=== PATIENT | female | born 1980 | race Caucasian/White ===

== ENCOUNTER 2016-08-18 15:31 | Emergency (ER) | payer OTHER ==
[~2016-08-18] VITALS: Ht 162.6 cm; Wt 66.5 kg
[~2016-08-18 15:31] MED LIST: ACET1TAB40 PO; ASPI81TA3 PO; ATOR40TA68 PO; CEPH-443 PO; CLON1TAB3 PO; FLUC150T17 PO; IBUP-1542 PO; INSU100C SC; LANT3I SC; METO-429 PO; PHEN50TA3 PO; ZOLP10TA5 PO
[2016-08-18 16:06] VITALS: Ht 162.6 cm; Wt 66.5 kg
[2016-08-18 18:06] VITALS: BP 112/55; PULSE 93; RESP 16
[2016-08-18] MEDS ORDERED: IBUP-1542 PO (19:34)
--- NOTE | 2016-08-18 19:39 | ERD ---
ER Documentation Chief Complaint Date/Time DATE: 08/18/16 TIME: 19:38 Chief Complaint ON CYCL;HVY BLDG;DIZZY; CP;ANEMIC;5 PADS 2DAY;PELV PAIN;HX STROKE&AL;D&C'16 HPI Patient is a 28-year-old female with coronary disease, diabetes, hypertension, seizures, and bipolar disorder. She said that she is "feeling anemic". She said that she has had vaginal bleeding as her period started yesterday. She says that she has gone through 6 periods today. She started with cramping last night. She called her primary doctor today but there was no appointment available. Upon review of old medical records the patient has multiple visits to the ER. Review of the emergency department information exchange shows ER visits to 3 different emergency departments. ROS All systems reviewed and are negative except as per history of present illness. Medications Home Meds Active Scripts Ibuprofen* (Motrin*) 600 Mg Tab, 600 MG PO Q6H Y for PAIN AND OR ELEVATED TEMP, #30 TAB Prov:SENA REYES MD 08/18/16 Cephalexin* (Keflex*) 500 Mg Capsule, 500 MG PO TID for 5 Days, CAP Prov:ANDREA VELEZ MD 04/07/16 Fluconazole* (Diflucan*) 150 Mg Tablet, 150 MG PO ONCE, #1 TAB Prov:ANDREA VELEZ MD 04/07/16 Reported Medications Phenytoin* (Dilantin* Chew) 50 Mg Tab.chew, 50 MG PO BID, TAB.CHEW 04/07/16 Acetaminophen with Codeine (Acetaminophen-Cod #3 Tablet) 1 Each Tablet, 1 TAB PO Q6H for 7 Days, #30 TAB 04/07/16 Aspirin* (Aspirin* Chew) 81 Mg Tab.chew, 81 MG PO DAILY, TAB.CHEW 04/07/16 Zolpidem Tartrate* (Zolpidem Tartrate*) 10 Mg Tablet, 10 MG PO QHS Y for INSOMNIA for 30 Days, #30 TAB 11/03/15 Clonazepam* (Clonazepam*) 1 Mg Tablet, 1 MG PO BID Y for ANXIETY for 15 Days, # 30 TAB 11/03/15 Metoprolol Tartrate* (Lopressor*) 50 Mg Tab, 50 MG PO BID for 30 Days, #60 TAB 11/03/15 Atorvastatin* (Atorvastatin*) 40 Mg Tablet, 40 MG PO QHS for 30 Days, #30 TAB 11/03/15 Ibuprofen* (Ibuprofen*) 600 Mg Tablet, 600 MG PO Q6H for 5 Days, #12 TAB 11/03/15 Insulin Lispro (Humalog) 100 U/Ml Cartridge, 5 SC SLIDING SCALE ACHS, EA 07/15/14 Insulin Glargine* (Lantus*) 100 Unit/Ml Soln, 15 UNIT SC HS, EA 07/15/14 Allergies Allergies: Coded Allergies: sulfamethoxazole (Verified Allergy, Severe, HIVES, SOB, 04/07/16) honey (Verified Allergy, Unknown, 04/07/16) Uncoded Allergies: CITRUS (Allergy, Unknown, 02/10/14) PMhx/Soc History of Surgery: Yes ( x1, TUBES TIED) Anesthesia Reaction: No Hx Neurological Disorder: Yes (Seizures, Tia) Hx Respiratory Disorders: No Hx Cardiac Disorders: No Hx Psychiatric Problems: Yes (Bipolar) Hx Miscellaneous Medical Probl: Yes (DM II, HTN) Hx Alcohol Use: No Hx Substance Use: No Hx Tobacco Use: No FmHx Family History: diabetes Physical Exam Vitals Vital Signs Date Time Temp Pulse Resp B/P Pulse Ox O2 Delivery O2 Flow Rate FiO2 08/18/16 18:06 93 16 112/55 99 Room Air 08/18/16 16:06 98.7 98 20 104/61 98 Physical Exam Const: No acute distress Head: Atraumatic Eyes: Normal Conjunctiva, no signs of anemia in the conjunctivae ENT: Normal External Ears, Nose and Mouth. Neck: Full range of motion..~ No meningismus. Resp: Clear to auscultation bilaterally Cardio: Regular rate and rhythm, no murmurs Abd: Soft, non tender, non distended. Normal bowel sounds Skin: No petechiae or rashes Back: No midline or flank tenderness Ext: No cyanosis, or edema Neur: Awake and alert Psych: Normal Mood and Affect Results 24 hrs Laboratory Tests Test 08/18/16 17:14 Bedside Glucose 248mg/dL Procedures/MDM EKG read by me: Rate/Rhythm: Regular rate and rhythm at a rate of 95 Intervals: Normal Impression: No evidence of ischemia or arrhythmia Smoking Cessation Therapy: Pt. was lectured for greater than 3 minutes on the health risks of continued smoking and the benefits of cessation. Patient is a 36-year-old female who presents with vaginal bleeding. Her conjunctive are pink and I doubt significant anemia that will require transfusion at this time. She has normal vital signs as well. The patient is well-known to our facility and I have seen her previously in the past. She has visits to other emergency department as well. I believe outpatient management is appropriate. The patient could return for any worsening symptoms. I do not believe she requires further workup or testing at this time. I do not believe she requires admission to the hospital. Departure Diagnosis: Primary Impression: Vaginal bleeding Condition: Fair Patient Instructions: Menorrhagia Referrals: Dr. Cochran your doctor Additional Instructions: Call your primary care doctor TOMORROW for an appointment during the next 1-2 days.See the doctor sooner or return here if your condition worsens before your appointment time. SENA REYES MD Aug 18, 2016 19:39
== END 2016-08-19 07:05 | disposition left against medical advice (07) ==
LOC: E/R 15:31
DX: N93.9 Abnormal uterine and vaginal bleeding, unspecified (principal); I10 Essential (primary) hypertension; E11.9 Type 2 diabetes mellitus without complications; I25.10 Atherosclerotic heart disease of native coronary artery without angina pectoris; Z79.82 Long term (current) use of aspirin; Z79.4 Long term (current) use of insulin
CPT/HCPCS: 82962; Z7502; 93005

== ENCOUNTER 2016-10-14 20:53 | Inpatient (IN) | payer OTHER ==
[~2016-10-14] VITALS: Ht 157.5 cm; Wt 66.0 kg
[2016-10-14 20:57] VITALS: Ht 157.5 cm; Wt 66.0 kg
[2016-10-14] MEDS ORDERED: SOD CHLORIDE 0.9% 1,000 ML IV STA (22:14)
[2016-10-14] MEDS ORDERED: ONDANSETRON 4 MG INJ IV STA ×2 (22:14)
[2016-10-14] MEDS ORDERED: morphine 2 MG INJ IV STA (22:14)
[2016-10-14 23:10] LABS: ADD SCAN DIFF NO
[2016-10-14 23:12] LABS: ABNORMAL IP MESSAGE 1; HEMOGLOBIN 13.6 g/dl (12.0-16.0); MEAN CORPUSCULAR HEMOGLOBIN 32.5 pg (29.0-33.0); MEAN CORPUSCULAR HGB CONC 34.9 g/dl (32.0-37.0); MEAN CORPUSCULAR VOLUME 93.1 fl (82.0-101.0); MEAN PLATELET VOLUME 10.1 fl (7.4-10.4); PLATELET COUNT 387 10^3/UL (140-415); RED BLOOD COUNT 4.19 10^6/ul (4.20-5.40); WHITE BLOOD COUNT 10.3 10^3/ul (4.8-10.8)
[2016-10-14 23:24] LABS: ALBUMIN/GLOBULIN RATIO 1.11; BILIRUBIN,INDIRECT 0.2 mg/dl (0-1.1); BILIRUBIN,TOTAL 0.2 mg/dl (0.2-1.3); CALCIUM 9.7 mg/dl (8.4-10.2); CREATININE 0.75 mg/dl (0.44-1.00); POTASSIUM 5.5 mmol/L (3.5-5.1); TOTAL PROTEIN 9.5 g/dl (6.1-8.1)
[2016-10-15] MEDS ORDERED: LORAZEPAM 2 MG INJ IV ONE
[2016-10-15] MEDS ORDERED: TRIMETHOBENZAMIDE 100 MG/ML VIAL IM ONE
[2016-10-15] MEDS ORDERED: METOCLOPRAMIDE 10 MG INJ IV ONE (01:30)
[2016-10-15 02:02] LABS: LYMPHOCYTES # 0.5 10^3/ul (0.8-2.9); MONOCYTE # 0.2 10^3/ul (0.3-0.9); NEUTROPHIL # 9.6 10^3/ul (1.6-7.5)
[2016-10-15 03:22] LABS: ADD UMIC YES; URINE BILIRUBIN (Dip) NEGATIVE (NEGATIVE); URINE BLOOD (Dip) 1+ (NEGATIVE); URINE COLOR LT. YELLOW (YELLOW); URINE GLUCOSE (Dip) NEGATIVE (NEGATIVE); URINE KETONES (Dip) 3+ (NEGATIVE); URINE LEUKOCYTE ESTERASE (Dip) NEGATIVE (NEGATIVE); URINE NITRITE (Dip) NEGATIVE (NEGATIVE); URINE TOTAL PROTEIN (Dip) TRACE (NEGATIVE); URINE UROBILINOGEN (Dip) 0.2 E.U./dL (0.1-1.0)
[2016-10-15 03:36] LABS: BACTERIA,URINE RARE; SQUAMOUS EPITHELIAL CELL,UR FEW; URINE RBCS 0-2 /HPF (0)
--- NOTE | 2016-10-15 05:00 | RADRPT ---
PROCEDURE: CT Abdomen and pelvis without contrast. CLINICAL INDICATION: Abdominal pain. TECHNIQUE: CT scan of the abdomen and pelvis was performed on a multi-detector high-resolution CT scanner. Contiguous axial images were obtained from the lung bases to the ischial tuberosities wit hout intravenous contrast. Coronal and sagittal reformatted images were also obtained. Images were reviewed on the PACS workstation. One or more of the following dose reduction techniques were used: - Automated exposure control. - Adjustment of the mA and/or kV according to patient size. - Use of iterative reconstruction technique. Exam CTD/vol = 10.21 mGy. Total exam DLP = 577.58 mGy-cm. COMPARISON: 11/03/2015. FINDINGS: Evaluation of the lung bases demonstrates no pleural or parenchymal disease. There is mild thickenin g of the distal esophagus. Abdomen: The liver is normal in size. There is no focal mass or dilatation of the biliary tree. T he gallbladder is not distended. The spleen, pancreas and bilateral adrenal glands are within chang l limits. Bilateral kidneys are normal in size with no contour deforming mass identified. There is mild scarring within the lower pole of the right kidney. There is no radiopaque renal or ureteral calculus identified. There is no hydronephrosis or hydroureter. There is no retroperitoneal adenop athy. The abdominal aorta is of normal caliber. There is no abnormal bowel wall thickening or distension. There is no bowel obstruction or free air . A normal appendix is identified. There is no diverticulosis or diverticulitis. There is no asci madhu. Pelvis: The bladder is unremarkable. The uterus and adnexa are within normal limits. There is no significant pelvic adenopathy or free fluid. Evaluation of the osseous structures demonstrates no suspicious lytic or blastic lesion. IMPRESSION: No acute abnormality identified within the abdomen and pelvis. Mild thickening of the distal esophagus represents nonspecific esophagitis. Mild right renal cortical scarring. .Jese Martinez MD, MD Date Time Electronically viewed and signed by .Jese Martinez MD, MD on 10/15/2016 05:00 .T/
[2016-10-15] MEDS ORDERED: ONDANSETRON 4 MG INJ IV STA ×2 (05:10→05:11)
[2016-10-15] MEDS ORDERED: ONDANSETRON 4 MG INJ IV PRN (05:30)
[2016-10-15] MEDS ORDERED: ACETAMINOPHEN 325 MG TAB PO PRN (05:30)
[2016-10-15] MEDS ORDERED: SOD CHLORIDE 0.9% 1,000 ML IV ONE (05:30)
--- NOTE | 2016-10-15 06:00 | ERA ---
ER Documentation Chief Complaint Date/Time DATE: 10/15/16 TIME: 05:47 Chief Complaint vomiting x 6 days, actively vomiting, hx-PVD, cercival CA HPI 28-year-old female comes for vomiting 6 days. Denies diarrhea or constipation. Has some epigastric abdominal pain with vomiting but denies severe abdominal pain. Has history of cervical cancer. Denies shortness of breath and chest pain. 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 ROS All systems reviewed and are negative except as per history of present illness. Medications Home Meds Active Scripts Ibuprofen* (Motrin*) 600 Mg Tab, 600 MG PO Q6H Y for PAIN AND OR ELEVATED TEMP, #30 TAB Prov:SENA REYES MD 08/18/16 Cephalexin* (Keflex*) 500 Mg Capsule, 500 MG PO TID for 5 Days, CAP Prov:ANDREA VELEZ MD 04/07/16 Fluconazole* (Diflucan*) 150 Mg Tablet, 150 MG PO ONCE, #1 TAB Prov:ANDREA VELEZ MD 04/07/16 Reported Medications Phenytoin* (Dilantin* Chew) 50 Mg Tab.chew, 50 MG PO BID, TAB.CHEW 04/07/16 Acetaminophen with Codeine (Acetaminophen-Cod #3 Tablet) 1 Each Tablet, 1 TAB PO Q6H for 7 Days, #30 TAB 04/07/16 Aspirin* (Aspirin* Chew) 81 Mg Tab.chew, 81 MG PO DAILY, TAB.CHEW 04/07/16 Zolpidem Tartrate* (Zolpidem Tartrate*) 10 Mg Tablet, 10 MG PO QHS Y for INSOMNIA for 30 Days, #30 TAB 11/03/15 Clonazepam* (Clonazepam*) 1 Mg Tablet, 1 MG PO BID Y for ANXIETY for 15 Days, # 30 TAB 11/03/15 Metoprolol Tartrate* (Lopressor*) 50 Mg Tab, 50 MG PO BID for 30 Days, #60 TAB 11/03/15 Atorvastatin* (Atorvastatin*) 40 Mg Tablet, 40 MG PO QHS for 30 Days, #30 TAB 11/03/15 Ibuprofen* (Ibuprofen*) 600 Mg Tablet, 600 MG PO Q6H for 5 Days, #12 TAB 11/03/15 Insulin Lispro (Humalog) 100 U/Ml Cartridge, 5 SC SLIDING SCALE ACHS, EA 07/15/14 Insulin Glargine* (Lantus*) 100 Unit/Ml Soln, 15 UNIT SC HS, EA 07/15/14 Allergies Allergies: Coded Allergies: sulfamethoxazole (Verified Allergy, Severe, HIVES, SOB, 04/07/16) honey (Verified Allergy, Unknown, 04/07/16) Uncoded Allergies: CITRUS (Allergy, Unknown, 02/10/14) PMhx/Soc History of Surgery: Yes ( x1, TUBES TIED) Anesthesia Reaction: No Hx Neurological Disorder: Yes (Seizures, Tia) Hx Respiratory Disorders: No Hx Cardiac Disorders: No Hx Psychiatric Problems: Yes (Bipolar) Hx Miscellaneous Medical Probl: Yes (DM II, HTN) Hx Alcohol Use: No Hx Substance Use: No Hx Tobacco Use: No Smoking Status: Never smoker Physical Exam Vitals Vital Signs Date Time Temp Pulse Resp B/P Pulse Ox O2 Delivery O2 Flow Rate FiO2 10/15/16 04:35 115 16 145/97 97 10/15/16 02:11 125 16 141/100 99 10/14/16 23:35 111 16 148/88 100 Room Air 10/14/16 20:57 98.3 134 20 164/86 99 Physical Exam Const: [] Moderate distress, vomiting, appears very uncomfortable Head: Atraumatic Eyes: Normal Conjunctiva ENT: Normal External Ears, Nose and Mouth. Neck: Full range of motion..~ No meningismus. Resp: Clear to auscultation bilaterally Cardio: Regular rate and rhythm, no murmurs Abd: Soft, mild epigastric tenderness without guarding or rebound r, non distended. Normal bowel sounds Skin: No petechiae or rashes Back: No midline or flank tenderness Ext: No cyanosis, or edema Neur: Awake and alert and oriented 3, no focal deficits Psych: Normal Mood and Affect Result Diagram: 10/14/16222410/14/162224 Results 24 hrs Laboratory Tests Test 10/14/16 22:25 10/15/16 02:00 White Blood Count 10.310^3/ul Red Blood Count 4.1910^6/ul Hemoglobin 13.6g/dl Hematocrit 39.0% Mean Corpuscular Volume 93.1fl Mean Corpuscular Hemoglobin 32.5pg Mean Corpuscular Hemoglobin Concent 34.9g/dl Red Cell Distribution Width 12.0% Platelet Count 75994^3/UL Mean Platelet Volume 10.1fl Neutrophils % 93.0% Lymphocytes % 5.0% Monocytes % 2.0% Neutrophils # 9.610^3/ul Lymphocytes # 0.510^3/ul Monocytes # 0.210^3/ul Sodium Level 138mmol/L Potassium Level 5.5mmol/L Chloride Level 102mmol/L Carbon Dioxide Level 16mmol/L Anion Gap 26 Blood Urea Nitrogen 16mg/dl Creatinine 0.75mg/dl Glucose Level 278mg/dl Calcium Level 9.7mg/dl Total Bilirubin 0.2mg/dl Direct Bilirubin 0.00mg/dl Indirect Bilirubin 0.2mg/dl Aspartate Amino Transf (AST/SGOT) 29IU/L Alanine Aminotransferase (ALT/SGPT) 22IU/L Alkaline Phosphatase 164IU/L Total Protein 9.5g/dl Albumin 5.0g/dl Globulin 4.50g/dl Albumin/Globulin Ratio 1.11 Lipase 42U/L Urine Color LT. YELLOW Urine Clarity CLEAR Urine pH 5.5 Urine Specific [place] >=1.030 Urine Ketones 3+ Urine Nitrite NEGATIVE Urine Bilirubin NEGATIVE Urine Urobilinogen 0.2 E.U./dL Urine Leukocyte Esterase NEGATIVE Urine Microscopic RBC 0-2/HPF Urine Microscopic WBC 0-2/HPF Urine Squamous Epithelial Cells FEW Urine Bacteria RARE Urine Hemoglobin 1+ Urine Glucose NEGATIVE% Urine Total Protein TRACE Current Medications Medications (Trade) Dose Ordered Sig/Rere Route PRN Reason Start Time Stop Time Status Last Admin Dose Admin Sodium Chloride (NS) 1,000 ml @ 1,000 mls/hr Q1H STAT IV 10/14/16 22:14 10/14/16 23:13 DC 10/14/16 22:14 Morphine Sulfate (morphine) 2 mg ONCE STAT IV 10/14/16 22:14 10/14/16 22:15 DC 10/14/16 23:02 Ondansetron HCl (Zofran Inj) 4 mg ONCE STAT IV 10/14/16 22:14 10/14/16 22:15 DC 10/14/16 23:02 Ondansetron HCl (Zofran Inj) 4 mg ONCE STAT IV 10/14/16 22:14 10/14/16 22:15 DC 10/14/16 23:02 Trimethobenzamide HCl (Tigan) 200 mg ONCE ONCE IM 10/15/16 00:00 10/15/16 00:01 DC 10/15/16 00:12 Lorazepam (Ativan) 1 mg ONCE ONCE IV 10/15/16 00:00 10/15/16 00:01 DC 10/15/16 00:01 Metoclopramide HCl (Reglan) 10 mg ONCE ONCE IV 10/15/16 01:30 10/15/16 01:31 DC 10/15/16 02:10 Ondansetron HCl (Zofran Inj) 4 mg ONCE STAT IV 10/15/16 05:10 10/15/16 05:12 DC 10/15/16 05:20 Ondansetron HCl 4 mg 4 mg ONCE STAT IV 10/15/16 05:11 10/15/16 05:13 DC 10/15/16 05:20 Sodium Chloride (NS) 1,000 ml @ 1,000 mls/hr Q1H ONCE IV 10/15/16 05:30 10/15/16 06:29 10/15/16 05:20 Ondansetron HCl (Zofran Inj) 4 mg BRIDGE ORDER PRN IV NAUSEA AND/OR VOMITING 10/15/16 05:30 10/16/16 05:29 Acetaminophen (Tylenol Tab) 650 mg ER BRIDGE PRN PO MILD PAIN/FEVER 10/15/16 05:30 10/16/16 05:29 Procedures/MDM Intractable nausea vomiting after multiple doses of multiple nausea medications. Patient was hydrated with 2 L of normal saline, given multiple doses of Zofran, Ativan, Reglan, Tigan. She gets temporary relief but then begins vomiting again. She also had 4 mg of morphine but states that that took away her pain and she does not actually have much pain she does has nausea. Has been going on for 6 days and she had mild signs of dehydration with an elevated anion gap of 20.5. CT shows no etiology for this and only has thickening of her esophagus which may have to do with 6 days of vomiting. She also has an elevated potassium with no EKG changes. Potassium is only mildly elevated I am ordering SC Kayexalate and calcium chloride.. I communicated with Dr. Pak who [facility] abdomen pelvis interpretation: Distal esophagus thickening, no obstruction, no free air, no abnormal fat stranding, no fractures EKG interpretation: Sinus tachycardia rate of 106, normal axis, no ST or T-wave changes concerning for acute ischemia, no tall T waves, Departure Diagnosis: Primary Impression: Intractable vomiting with nausea Additional Impressions: Hyperkalemia Hyperglycemia Dehydration Condition: SHAYNA Mckenna DO Oct 15, 2016 05:59
[2016-10-15] MEDS ORDERED: SOD CHLORIDE 0.9% 1,000 ML IV SCH (06:32)
[2016-10-15] MEDS ORDERED: ALBUTEROL/IPRATROPIUM (NEB) 3 ML AMP HHN PRN (07:00)
[2016-10-15] MEDS ORDERED: SOD CHLORIDE 0.9% 2,000 ML IV ONE (07:00)
[2016-10-15] MEDS ORDERED: NACL 0.9% 3 ML SYG IV SCH (07:00)
[2016-10-15] MEDS: INSULIN LISPRO 100 UNIT/ML VIAL SC STA ×2 (07:17→07:48)
[2016-10-15] MEDS ORDERED: INSULIN HUMAN REGULAR 100 UNIT in SOD CHLORIDE 0.9% 99 ML IV SCH (08:30)
[2016-10-15] MEDS ORDERED: DEXTROSE 50% 50 ML SYRINGE IV PRN ×4 (08:30→16:00)
[2016-10-15] MEDS ORDERED: ACCU-CHEK XX SCH (08:30)
--- NOTE | 2016-10-15 08:35 | HP ---
Date/Time of Note Date/Time of Note DATE: 10/15/16 TIME: 08:10 Assessment/Plan VTE Prophylaxis VTE Prophylaxis Intervention: SCD's Assessment/Plan Assessment/Plan IMPRESSION 1. Mild DKA 2. Intractable Vomiting most likely 2/2 above 3. Hyperkalemia 4. Anion Gap Metabolic Acidosis 5. Hx od recently diagnosed Cervical Cancer 6. Hx of CVA 7. Hx of HTN 8. Hx of LLE DVT 9. Bilateral non-healing Ulcer: pt f/u here at [facility] PLAN ICU admission Insulin with DKA protocol Zofran and Reglan for vomiting. Note that CT a/p is without bowel obstruction. Pain and anti-anxiety meds as needed. Notify [facility] about pt's admission. HPI/ROS Admit Date/Time Admit Date/Time Hx of Present Illness Patient is a 36 yo female with history of Diabetes, CAD, HTN, CVA, LLE DVT, psych disorder, bilateral non-healing ulcer and cervical Cancer who presented to ER with 6 days history of intractable vomiting. Initially food that she ate would come out, then mainly clear saliva. She also reported generalized body pain. at the time, I saw her, she was sitting on a chair in ER and was intermittently vomiting and looked uncomfortable. She was not fully cooperative and didn't let me do physical exam saying her whole body hurts. Patient follows- up at [facility] for her lower ext ulcer. She told me that she was recently diagnosed with cervical cancer and currently awaiting treatment. When pt came to ER, her Glucose was 278, K 5.5, HCO3 16, AG 26 and UA with 3+ ketones. CT a/p showed no acute abnormality identified within the abdomen and pelvis, mild thickening of the distal esophagus represents nonspecific esophagitis and mild right renal cortical scarring. In ER, she received, IVF, anti-emetics, pain meds and Ativan. . PMH/Family/Social Social History Smoking Status: Never smoker Exam/Review of Systems Vital Signs Vitals Vital Signs Date Time Temp Pulse Resp B/P Pulse Ox O2 Delivery O2 Flow Rate FiO2 10/15/16 07:55 98.2 112 18 141/84 100 Room Air Exam Exam Unable to fully assess. pt in distress and not willing. GEN: Distress, sitting in a chair in ER, intermittently vomiting EXT: Dry dressing over bilateral foot and ankle noted Labs Result Diagram: 10/14/16 1377 10/14/16 2225 Medications Medications Current Medications Sodium Chloride (NS) 1,000 ml @ 150 mls/hr Q6H40M IV ; Start 10/15/16 at 06:32 Lorazepam (Ativan) 0.5 mg Q6H PRN IV ANXIETY; Start 10/15/16 at 07:00 Ondansetron HCl (Zofran Inj) 4 mg Q6H PRN IV NAUSEA AND/OR VOMITING; Start at 07:00 Metoclopramide HCl (Reglan) 10 mg Q6H PRN IV NAUSEA AND/OR VOMITING; Start at 07:00 Morphine Sulfate (morphine) 2 mg Q4H PRN IV PAIN LEVEL 7-10; Start 10/15/16 at 07:00 Famotidine 20 mg 20 mg Q12 IV ; Start 10/15/16 at 09:00 Sodium Chloride (NS) 2,000 ml @ 1,000 mls/hr Q2H ONCE IV Last administered on 10/15/16t 07:42; Admin Dose 1,000 MLS/HR; Start 10/15/16 at 07:00; Stop at 08:59 BEE SUAREZ MD Oct 15, 2016 08:20
[2016-10-15] MEDS ORDERED: LIDOCAINE 1% (MPF) 5 ML VIAL SC ONE (09:00)
[2016-10-15] MEDS: ONDANSETRON 4 MG INJ IV PRN ×3 (09:10→20:22)
[2016-10-15] MEDS: FAMOTIDINE 20 MG INJ IV SCH ×2 (09:10→20:22)
[2016-10-15] MEDS: DEXTROSE 5%-0.45% NACL 1,000 ML IV SCH ×3 (09:31→21:02)
[2016-10-15 10:08] LABS: ADD SCAN DIFF NO
[2016-10-15 10:21] LABS: BASOPHILS % 0.1 % (0.0-2.0); HEMATOCRIT 28.5 % (37.0-47.0); HEMOGLOBIN 10.2 g/dl (12.0-16.0); LYMPHOCYTES # 0.6 10^3/ul (0.8-2.9); LYMPHOCYTES % 5.7 % (15.0-51.0); MEAN CORPUSCULAR HEMOGLOBIN 32.6 pg (29.0-33.0); MEAN CORPUSCULAR HGB CONC 35.8 g/dl (32.0-37.0); MEAN CORPUSCULAR VOLUME 91.1 fl (82.0-101.0); MEAN PLATELET VOLUME 8.8 fl (7.4-10.4); MONOCYTE # 0.3 10^3/ul (0.3-0.9); MONOCYTES % 2.6 % (0.0-11.0); NEUTROPHIL # 9.7 10^3/ul (1.6-7.5); NEUTROPHILS % 91.3 % (39.0-77.0); PLATELET COUNT 312 10^3/UL (140-415); RED BLOOD COUNT 3.13 10^6/ul (4.20-5.40); RED CELL DISTRIBUTION WIDTH 12.1 % (11.5-14.5); WHITE BLOOD COUNT 10.6 10^3/ul (4.8-10.8)
[2016-10-15] MEDS: METOCLOPRAMIDE 10 MG INJ IV PRN ×2 (10:30→22:59)
[2016-10-15 10:31] LABS: ALBUMIN 3.4 g/dl (3.3-4.9)
[2016-10-15 10:32] LABS: POTASSIUM 3.6 mmol/L (3.5-5.1)
[2016-10-15 10:34] LABS: ALBUMIN/GLOBULIN RATIO 1.03; BILIRUBIN,INDIRECT 0.1 mg/dl (0-1.1); BILIRUBIN,TOTAL 0.1 mg/dl (0.2-1.3); CREATININE 0.54 mg/dl (0.44-1.00); TOTAL PROTEIN 6.7 g/dl (6.1-8.1)
[2016-10-15 10:35] LABS: CALCIUM 7.5 mg/dl (8.4-10.2); CHOL/HDL RATIO 2.7 RATIO; MAGNESIUM 1.3 mg/dl (1.7-2.5)
--- NOTE | 2016-10-15 11:36 | RADRPT ---
PROCEDURE: XR Chest. CLINICAL INDICATION: PICC line placement TECHNIQUE: Anterior chest x-ray. COMPARISON: 01/23/2016 FINDINGS: Interval placement of right-sided PICC line which terminates deep in right atrium, 5 cm below the ca voatrial junction. The lungs are clear. No pleural effusion identified. There is no evidence of pneumothorax. The cardiomediastinal silhouette is unremarkable. The soft tissues are normal. Osseous structures are unremarkable. IMPRESSION: 1. Interval placement right-sided PICC line which terminates tip in right atrium and should be with drawn approximately 5 cm for appropriate positioning. 2. No acute cardiopulmonary pathology identified. RPTAT: QQ .Luis Bautista MD, Date Time Electronically viewed and signed by .Luis Bautista MD, on 10/15/2016 11:35 .M/
--- NOTE | 2016-10-15 11:48 | RADRPT ---
PROCEDURE: XR Chest. CLINICAL INDICATION: PICC line placement TECHNIQUE: PA and lateral chest x-ray. COMPARISON: 10/15/2016 at 1124 hours FINDINGS: Interval repositioning of right-sided PICC line which terminates at the cavoatrial junction. The lungs are clear. No pleural effusion identified. No evidence of pneumothorax. The cardiomediastinal silhouette is unremarkable. The soft tissues are within normal limits. Bony structures are unremarkable. IMPRESSION: 1. Satisfactory position of right-sided PICC line. 2. No acute disease is seen in the chest. RPTAT: QQ .Luis Bautista MD, MD Date Time Electronically viewed and signed by .Luis Bautista MD, on 10/15/2016 11:48 .M/
[2016-10-15] MEDS ORDERED: HEPARIN (10 UNITS/ML) 5ML SYG IV ONE (12:30)
[2016-10-15 14:43] VITALS: TEMP 98.2
--- NOTE | 2016-10-15 15:15 | RADRPT ---
PROCEDURE: US guidance for PICC line CLINICAL INDICATION: PICC line placement TECHNIQUE: Multiple real-time images were acquired of the patient's arm utilizing a high resolutio n transducer. This was performed by the PICC line nurse for venous access. COMPARISON: None FINDINGS: Ultrasound guidance for PICC line placement. IMPRESSION: Ultrasound guidance for PICC line placement. RPTAT: AA Physician Vita Date Time Electronically viewed and signed by Juan Escobar Physician on 10/15/2016 15:14 /
[2016-10-15] MEDS ORDERED: GLUCAGON 1 MG INJ IM PRN (16:00)
[2016-10-15] MEDS ORDERED: GLUCOSE GEL 15 GRAM TUBE PO PRN ×2 (16:00)
[2016-10-15] MEDS ORDERED: GLUCOSE GEL 15 GRAM TUBE BUCCAL PRN (16:00)
[2016-10-15 16:02] VITALS: PULSE 106
[2016-10-15 16:08] VITALS: PULSE 104
[2016-10-15] MEDS: Insulin NOVOLOG SS MILD Algorithm (SS with meals and bedtime) SC SCH ×2 (17:35→20:23)
[2016-10-15] MEDS: INSULIN ASPART [NOVOLOG] 3 ML PEN SC SCH (18:01)
[2016-10-15 18:29] VITALS: BP 162/84; PULSE 106; RESP 20
[2016-10-15 20:35] VITALS: PULSE 105
[2016-10-15 20:47] VITALS: BP 141/79; RESP 18
[2016-10-15] MEDS ORDERED: INSULIN GLARGINE [LANtus] 3 ML PEN SC SCH ×2 (21:00)
[2016-10-16] VITALS (7 sets, daily range): BP systolic 161–165; BP diastolic 88–93; PULSE 90–101; RESP 18–22
[2016-10-16] MEDS: ACCUCHECK AT 2AM (Patients on SS coverage) XX SCH (01:52)
[2016-10-16] MEDS: DEXTROSE 5%-0.45% NACL 1,000 ML IV SCH ×4 (02:44→22:40)
[2016-10-16] MEDS: morphine 2 MG INJ IV PRN (05:31)
[2016-10-16] MEDS: ONDANSETRON 4 MG INJ IV PRN ×4 (05:31→23:38)
[2016-10-16] MEDS: FAMOTIDINE 20 MG INJ IV SCH ×3 (08:39→20:30)
[2016-10-16] MEDS: Insulin NOVOLOG SS MILD Algorithm (SS with meals and bedtime) SC SCH ×4 (08:40→20:32)
[2016-10-16] MEDS: INSULIN ASPART [NOVOLOG] 3 ML PEN SC SCH ×3 (08:41→17:29)
[2016-10-16 12:21] LABS: ADD SCAN DIFF NO
[2016-10-16 12:28] LABS: BASOPHILS % 0.1 % (0.0-2.0); HEMATOCRIT 32.3 % (37.0-47.0); HEMOGLOBIN 11.7 g/dl (12.0-16.0); LYMPHOCYTES # 0.6 10^3/ul (0.8-2.9); LYMPHOCYTES % 6.7 % (15.0-51.0); MEAN CORPUSCULAR HEMOGLOBIN 31.7 pg (29.0-33.0); MEAN CORPUSCULAR HGB CONC 36.2 g/dl (32.0-37.0); MEAN CORPUSCULAR VOLUME 87.5 fl (82.0-101.0); MEAN PLATELET VOLUME 8.7 fl (7.4-10.4); MONOCYTE # 0.2 10^3/ul (0.3-0.9); MONOCYTES % 2.3 % (0.0-11.0); NEUTROPHIL # 8.1 10^3/ul (1.6-7.5); NEUTROPHILS % 90.5 % (39.0-77.0); PLATELET COUNT 339 10^3/UL (140-415); RED BLOOD COUNT 3.69 10^6/ul (4.20-5.40); RED CELL DISTRIBUTION WIDTH 11.9 % (11.5-14.5); WHITE BLOOD COUNT 8.9 10^3/ul (4.8-10.8)
[2016-10-16 12:38] LABS: CREATININE 0.52 mg/dl (0.44-1.00); POTASSIUM 2.7 mmol/L (3.5-5.1)
[2016-10-16 12:39] LABS: CALCIUM 8.5 mg/dl (8.4-10.2); PHOSPHORUS 1.2 mg/dl (2.5-4.9)
[2016-10-16 12:40] LABS: MAGNESIUM 1.5 mg/dl (1.7-2.5)
--- NOTE | 2016-10-16 14:18 | PN ---
Date/Time of Note Date/Time of Note DATE: 10/16/16 TIME: 14:17 Assessment/Plan VTE Prophylaxis VTE Prophylaxis Intervention: LMWH Lines/Catheters IV [facility] PICC Line Central line still needed: Yes Urinary Cath still in place: No Assessment/Plan Chief Complaint/Hosp Course Assessment 1. Intractable nausea and vomiting likely secondary to diabetic gastroparesis 2. History of vertigo extremity nonhealing ulcerations 3. Poorly controlled diabetes mellitus 4. History of psychiatric disorder Plan 1. Increase Lantus as blood sugar remains elevated at 220 2. Continue IV fluids 3. Antibiotics 4. Lovenox DVT prophylaxis 5. May require psychiatric evaluation. Problems: Subjective 24 Hr Interval Summary Free Text/Dictation Still having significant nausea and with occasional vomiting. Patient declining any by mouth medications or clear liquids at this point. Exam/Review of Systems Vital Signs Vitals Vital Signs Date Time Temp Pulse Resp B/P Pulse Ox O2 Delivery O2 Flow Rate FiO2 10/16/16 12:23 101 10/16/16 11:31 98.1 18 162/90 98 10/15/16 14:43 Room Air Intake and Output 10/15/16 10/15/16 10/16/16 15:00 23:00 07:00 Intake Total 1000 ml 1500 ml Balance 1000 ml 1500 ml Exam GENERAL: Well-nourished well-developed lady comfortable at rest VITAL SIGNS: per chart NECK: Supple. No JVD or lymphadenopathy. CARDIAC EXAM: S1, S2. No added sounds or murmurs. CHEST: clear bilaterally, No added sounds, rales or wheezes ABDOMEN: Soft, nontender. No guarding or rebound. EXTREMITIES: No cyanosis, clubbing or edema. NEUROLOGIC: Generalized weakness. No focal deficits. Results Result Diagram: 10/16/16 1200 10/16/16 1200 Results 24 hrs Laboratory Tests Test 10/15/16 14:26 10/15/16 15:50 10/15/16 17:41 10/15/16 20:05 Bedside Glucose 94 137 169 223 H Test 10/16/16 01:46 10/16/16 07:53 10/16/16 11:43 10/16/16 12:00 Bedside Glucose 255 H 261 H 217 White Blood Count 8.9 Red Blood Count 3.69 L Hemoglobin 11.7 L Hematocrit 32.3 L Mean Corpuscular Volume 87.5 Mean Corpuscular Hemoglobin 31.7 Mean Corpuscular Hemoglobin Concent 36.2 Red Cell Distribution Width 11.9 Platelet Count 339 Mean Platelet Volume 8.7 Neutrophils % 90.5 H Lymphocytes % 6.7 L Monocytes % 2.3 Eosinophils % 0.0 Basophils % 0.1 Nucleated Red Blood Cells % 0.0 Neutrophils # 8.1 H Lymphocytes # 0.6 L Monocytes # 0.2 L Eosinophils # 0.0 Basophils # 0.0 Nucleated Red Blood Cells # 0.0 Sodium Level 137 Potassium Level 2.7 *L Chloride Level 97 # Carbon Dioxide Level 25 Anion Gap 18 H Blood Urea Nitrogen 6 L Creatinine 0.52 Glucose Level 222 H Calcium Level 8.5 Phosphorus Level 1.2 L Magnesium Level 1.5 L Medications Medications Current Medications Lorazepam (Ativan) 0.5 mg Q6H PRN IV ANXIETY; Start 10/15/16 at 07:00 Ondansetron HCl (Zofran Inj) 4 mg Q6H PRN IV NAUSEA AND/OR VOMITING Last administered on 10/16/16 11:36; Admin Dose 4 MG; Start 10/15/16 at 07:00 Metoclopramide HCl (Reglan) 10 mg Q6H PRN IV NAUSEA AND/OR VOMITING Last administered on 10/15/16 22:59; Admin Dose 10 MG; Start 10/15/16 at 07:00 Morphine Sulfate (morphine) 2 mg Q4H PRN IV PAIN LEVEL 7-10 Last administered on 10/16/16 05:31; Admin Dose 2 MG; Start 10/15/16 at 07:00 Famotidine 20 mg 20 mg Q12 IV Last administered on 10/16/16 11:36; Admin Dose 20 MG; Start 10/15/16 at 09:00 Dextrose/Sodium Chloride (D5-1/2ns) 1,000 ml @ 150 mls/hr Q6H40M IV Last administered on 10/16/16 11:53; Admin Dose 150 MLS/HR; Start 10/15/16 at 08:30 Insulin Glargine (Lantus) 15 unit HS SC Last administered on 10/15/16 20:24; Admin Dose 15 UNIT; Start 10/15/16 at 21:00 Diagnostic Test (Pha) (Accu-Chek) 1 ea 02 XX ; Start 10/16/16 at 02:00 Miscellaneous Information 1 ea NOTE XX ; Start 10/15/16 at 16:00 Glucose (Glutose) 15 gm Q15M PRN PO DECREASED GLUCOSE; Start 10/15/16 at 16:00 Glucose (Glutose) 22.5 gm Q15M PRN PO DECREASED GLUCOSE; Start 10/15/16 at 16: 00 Dextrose (D50w Syringe) 25 ml Q15M PRN IV DECREASED GLUCOSE; Start 10/15/16 at 16:00 Dextrose (D50w Syringe) 50 ml Q15M PRN IV DECREASED GLUCOSE; Start 10/15/16 at 16:00 Glucagon (Glucagen) 1 mg Q15M PRN IM DECREASED GLUCOSE; Start 10/15/16 at 16:00 Glucose 15 gm 15 gm Q15M PRN BUCCAL DECREASED GLUCOSE; Start 10/15/16 at 16:00 Potassium Chloride (KCl 40 MEQ/250 ML NS) 250 ml @ 62.5 mls/hr ONCE ONCE IVPB ; Start 10/16/16 at 14:30; Stop 10/16/16 at 18:29 JOSHUA VELA MD, [facility] October 16, 2016 14:18
[2016-10-16] MEDS ORDERED: POTASSIUM CHLORIDE 250 ML IVPB ONE (14:30)
[2016-10-16] MEDS: ENOXAPARIN 40 MG/0.4 ML SYG SC SCH (15:36)
[2016-10-16 15:40] LABS: MICROALBUMIN 0.8 mg/dL
[2016-10-16] MEDS: LORAZEPAM 2 MG INJ IV PRN (20:31)
[2016-10-16] MEDS ORDERED: INSULIN GLARGINE [LANtus] 3 ML PEN SC SCH (21:00)
[2016-10-17] MEDS: DEXTROSE 5%-0.45% NACL 1,000 ML IV SCH (00:13)
[2016-10-17 00:15] VITALS: BP 175/97; RESP 21
[2016-10-17] MEDS: morphine 2 MG INJ IV PRN (01:32)
[2016-10-17] MEDS: ACCUCHECK AT 2AM (Patients on SS coverage) XX SCH (02:26)
[2016-10-17] MEDS ORDERED: INSULIN ASPART [NOVOLOG] 3 ML PEN SC ONE (02:30)
[2016-10-17] MEDS: SOD CHLORIDE 0.9% 1,000 ML IV SCH ×3 (03:20→22:26)
[2016-10-17 05:56] LABS: ADD SCAN DIFF NO
[2016-10-17 06:08] LABS: BASOPHILS % 0.1 % (0.0-2.0); HEMATOCRIT 33.4 % (37.0-47.0); HEMOGLOBIN 12.3 g/dl (12.0-16.0); LYMPHOCYTES # 1.1 10^3/ul (0.8-2.9); LYMPHOCYTES % 12.3 % (15.0-51.0); MEAN CORPUSCULAR HEMOGLOBIN 31.8 pg (29.0-33.0); MEAN CORPUSCULAR HGB CONC 36.8 g/dl (32.0-37.0); MEAN CORPUSCULAR VOLUME 86.3 fl (82.0-101.0); MEAN PLATELET VOLUME 9.1 fl (7.4-10.4); MONOCYTE # 0.6 10^3/ul (0.3-0.9); MONOCYTES % 6.4 % (0.0-11.0); NEUTROPHILS % 80.9 % (39.0-77.0); PLATELET COUNT 386 10^3/UL (140-415); RED BLOOD COUNT 3.87 10^6/ul (4.20-5.40); RED CELL DISTRIBUTION WIDTH 11.6 % (11.5-14.5); WHITE BLOOD COUNT 8.7 10^3/ul (4.8-10.8)
[2016-10-17 06:22] LABS: CALCIUM 8.5 mg/dl (8.4-10.2); CREATININE 0.5 mg/dl (0.44-1.00); MAGNESIUM 1.3 mg/dl (1.7-2.5); PHOSPHORUS 1.7 mg/dl (2.5-4.9)
[2016-10-17 06:36] LABS: POTASSIUM 2.8 mmol/L (3.5-5.1)
[2016-10-17] MEDS: ONDANSETRON 4 MG INJ IV PRN ×3 (06:56→21:01)
[2016-10-17] MEDS: METOCLOPRAMIDE 10 MG INJ IV PRN ×2 (07:47→14:36)
[2016-10-17] MEDS: POTASSIUM CHLORIDE 250 ML IVPB SCH ×2 (07:53→12:06)
[2016-10-17 08:10] VITALS: BP 161/95; RESP 18
[2016-10-17] MEDS: FAMOTIDINE 20 MG INJ IV SCH ×2 (08:18→21:01)
[2016-10-17] MEDS: Insulin NOVOLOG SS MILD Algorithm (SS with meals and bedtime) SC SCH ×4 (08:20→21:00)
[2016-10-17] MEDS: INSULIN ASPART [NOVOLOG] 3 ML PEN SC SCH ×3 (08:21→17:34)
[2016-10-17] MEDS: ENOXAPARIN 40 MG/0.4 ML SYG SC SCH (08:21)
--- NOTE | 2016-10-17 10:21 | PN ---
Date/Time of Note Date/Time of Note DATE: 10/17/16 TIME: 10:19 Assessment/Plan VTE Prophylaxis VTE Prophylaxis Intervention: LMWH Lines/Catheters IV C[facility]ter Type (from [facility]): PICC Line Central line still needed: Yes Urinary Cath still in place: No Assessment/Plan Chief Complaint/Hosp Course Assessment 1. Intractable nausea and vomiting likely secondary to diabetic gastroparesis 2. History of vertigo extremity nonhealing ulcerations 3. Poorly controlled diabetes mellitus 4. History of psychiatric disorder Plan 1. Increase Lantus 2. Continue IV fluids 3. Antibiotics 4. 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 Still no p.o. intake continues IV fluids blood sugars remain elevated Exam/Review of Systems Vital Signs Vitals Vital Signs Date Time Temp Pulse Resp B/P Pulse Ox O2 Delivery O2 Flow Rate FiO2 10/17/16 08:10 98.1 91 18 161/95 97 10/15/16 14:43 Room Air Intake and Output 10/16/16 10/16/16 10/17/16 15:00 23:00 07:00 Intake Total 0 ml 925 ml Output Total 350 ml 150 ml Balance -350 ml 0 ml 775 ml Exam GENERAL: Well-nourished well-developed lady comfortable at rest VITAL SIGNS: per chart NECK: Supple. No JVD or lymphadenopathy. CARDIAC EXAM: S1, S2. No added sounds or murmurs. CHEST: clear bilaterally, No added sounds, rales or wheezes ABDOMEN: Soft, nontender. No guarding or rebound. EXTREMITIES: No cyanosis, clubbing or edema. NEUROLOGIC: Generalized weakness. No focal deficits. Results Result Diagram: 10/17/16 0450 10/17/16 0450 Results 24 hrs Laboratory Tests Test 10/16/16 11:43 10/16/16 12:00 10/16/16 16:57 10/16/16 20:29 Bedside Glucose 217 241 H 258 H White Blood Count 8.9 Red Blood Count 3.69 L Hemoglobin 11.7 L Hematocrit 32.3 L Mean Corpuscular Volume 87.5 Mean Corpuscular Hemoglobin 31.7 Mean Corpuscular Hemoglobin Concent 36.2 Red Cell Distribution Width 11.9 Platelet Count 339 Mean Platelet Volume 8.7 Neutrophils % 90.5 H Lymphocytes % 6.7 L Monocytes % 2.3 Eosinophils % 0.0 Basophils % 0.1 Nucleated Red Blood Cells % 0.0 Neutrophils # 8.1 H Lymphocytes # 0.6 L Monocytes # 0.2 L Eosinophils # 0.0 Basophils # 0.0 Nucleated Red Blood Cells # 0.0 Sodium Level 137 Potassium Level 2.7 *L Chloride Level 97 # Carbon Dioxide Level 25 Anion Gap 18 H Blood Urea Nitrogen 6 L Creatinine 0.52 Glucose Level 222 H Calcium Level 8.5 Phosphorus Level 1.2 L Magnesium Level 1.5 L Test 10/17/16 02:11 10/17/16 04:50 10/17/16 08:17 Bedside Glucose 314 H 251 H White Blood Count 8.7 Red Blood Count 3.87 L Hemoglobin 12.3 Hematocrit 33.4 L Mean Corpuscular Volume 86.3 Mean Corpuscular Hemoglobin 31.8 Mean Corpuscular Hemoglobin Concent 36.8 Red Cell Distribution Width 11.6 Platelet Count 386 Mean Platelet Volume 9.1 Neutrophils % 80.9 H Lymphocytes % 12.3 L Monocytes % 6.4 Eosinophils % 0.0 Basophils % 0.1 Nucleated Red Blood Cells % 0.0 Neutrophils # 7.0 Lymphocytes # 1.1 Monocytes # 0.6 Eosinophils # 0.0 Basophils # 0.0 Nucleated Red Blood Cells # 0.0 Sodium Level 130 L Potassium Level 2.8 *L Chloride Level 94 L Carbon Dioxide Level 28 Anion Gap 11 # Blood Urea Nitrogen 5 L Creatinine 0.50 Glucose Level 252 H Calcium Level 8.5 Phosphorus Level 1.7 L Magnesium Level 1.3 L Medications Medications Current Medications Lorazepam (Ativan) 0.5 mg Q6H PRN IV ANXIETY Last administered on 10/16/16 20: 31; Admin Dose 0.5 MG; Start 10/15/16 at 07:00 Ondansetron HCl (Zofran Inj) 4 mg Q6H PRN IV NAUSEA AND/OR VOMITING Last administered on 10/17/16 06:56; Admin Dose 4 MG; Start 10/15/16 at 07:00 Metoclopramide HCl (Reglan) 10 mg Q6H PRN IV NAUSEA AND/OR VOMITING Last administered on 10/17/16 07:47; Admin Dose 10 MG; Start 10/15/16 at 07:00 Morphine Sulfate (morphine) 2 mg Q4H PRN IV PAIN LEVEL 7-10 Last administered on 10/17/16 01:32; Admin Dose 2 MG; Start 10/15/16 at 07:00 Famotidine (Pepcid Iv) 20 mg Q12 IV Last administered on 10/17/16 08:18; Admin Dose 20 MG; Start 10/15/16 at 09:00 Diagnostic Test (Pha) (Accu-Chek) 1 ea 02 XX Last administered on 10/17/16 02: 26; Admin Dose 1 EA; Start 10/16/16 at 02:00 Miscellaneous Information 1 ea NOTE XX ; Start 10/15/16 at 16:00 Glucose (Glutose) 15 gm Q15M PRN PO DECREASED GLUCOSE; Start 10/15/16 at 16:00 Glucose (Glutose) 22.5 gm Q15M PRN PO DECREASED GLUCOSE; Start 10/15/16 at 16: 00 Dextrose (D50w Syringe) 25 ml Q15M PRN IV DECREASED GLUCOSE; Start 10/15/16 at 16:00 Dextrose (D50w Syringe) 50 ml Q15M PRN IV DECREASED GLUCOSE; Start 10/15/16 at 16:00 Glucagon (Glucagen) 1 mg Q15M PRN IM DECREASED GLUCOSE; Start 10/15/16 at 16:00 Glucose (Glutose) 15 gm Q15M PRN BUCCAL DECREASED GLUCOSE; Start 10/15/16 at 16 :00 Insulin Glargine (Lantus) 18 unit HS SC Last administered on 10/16/16 20:33; Admin Dose 18 UNIT; Start 10/16/16 at 21:00 Enoxaparin Sodium 40 mg 40 mg DAILY SC Last administered on 10/17/16 08:21; Admin Dose 40 MG; Start 10/16/16 at 14:30 Sodium Chloride 1,000 ml @ 100 mls/hr Q10H IV Last administered on 10/17/16 03 :20; Admin Dose 100 MLS/HR; Start 10/17/16 at 03:00 Potassium Chloride (KCl 40 MEQ/250 ML NS) 250 ml @ 62.5 mls/hr Q4H IVPB Last administered on 10/17/16 07:53; Admin Dose 62.5 MLS/HR; Start 10/17/16 at 07:00; Stop 10/17/16 at 14:59 JOSHUA VELA MD, [facility] October 17, 2016 10:21
[2016-10-17] MEDS: PANTOPRAZOLE 40 MG INJ IV SCH (12:06)
--- NOTE | 2016-10-17 15:43 | CONS ---
Date/Time of Note Date/Time of Note DATE: 10/17/16 TIME: 15:26 Assessment/Plan Assessment/Plan Additional Assessment/Plan Assessment Hypokalemia Nausea/vomiting Diabetes mellitus Mild thickening of the distal esophagus represents nonspecific esophagitis.by CT scan Diabetes mellitus Plan * Reschedule EGD in am Risks and benefit explained to the patient and agreed with planned procedure * correct hypokalemia * NPO * continue present management Consultation Date/Type/Reason Admit Date/Time Date of Consultation: October 17, 2016 Type of Consultation: nausea/vomiting Reason for Consultation Gastroenterology Referring Provider: JOSHUA VELA MD, [facility] Hx of Present Illness 36 year old female with past medical history of Diabetes mellitus,hypertension, bipolar disorder.cervical cancer seen at the ER with complaint of persistent vomiting.Present condition stated 7 days ago as persistent vomiting ,nausea with no associated abdominal pain,fever ,diarrhea.Patient claims tolerating liquid .No medications taken. Emergency room course revealed hyperkalemia,elevated blood sugar .Patient was subsequently admitted to ICU and eventually transferred to the floor.She had episodes of vomiting ,no abdominal pain and CT scan of abdomen/pelvis revealed No acute abnormality identified within the abdomen and pelvis. Mild thickening of the distal esophagus represents nonspecific esophagitis.Mild right renal cortical scarring..Patient had hypokalemia where a total of 80 meq was KCL was given however subsequent recheck revealed K 2.9 hence EGD was rescheduled' Constitutional: improved, no complaints Eyes: no complaints ENT: no complaints Respiratory: no complaints Cardiovascular: no complaints Gastrointestinal: no complaints Genitourinary: no complaints Musculoskeletal: no complaints Skin: no complaints Neurologic: no complaints Endocrine: no complaints Lymphatic: no complaints Psychological: nl mood/affect, no complaints Immunologic: no complaints Past Medical History Medical History: diabetes, hypertension, other (Bipolar) Past Surgical History Past Surgical Hx: no surgical history Family History Significant Family History: no pertinent family hx Social History Alcohol Use: rarely Smoking Status: Never smoker Drug Use: none Exam/Review of Systems Vital Signs Vitals Vital Signs Date Time Temp Pulse Resp B/P Pulse Ox O2 Delivery O2 Flow Rate FiO2 10/17/16 08:10 98.1 91 18 161/95 97 10/15/16 14:43 Room Air Intake and Output 10/16/16 10/16/16 10/17/16 15:00 23:00 07:00 Intake Total 0 ml 925 ml Output Total 350 ml 150 ml Balance -350 ml 0 ml 775 ml Exam Constitutional: alert, oriented, well developed Psych: nl mood/affect, no complaints Head: atraumatic, normocephalic Eyes: PERRL, nl conjunctiva, nl sclera ENMT: nl external ears & nose Neck: non-tender, supple Respiratory: clear to auscultation, normal air movement Cardiovascular: nl pulses, regular rate and rhythm Gastrointestinal: nl liver, spleen, non-tender, soft Musculoskeletal: nl extremities to inspection, nl gait and stance Extremities: normal pulses Neurological: [employer] II-XII intact, nl speech Skin: nl turgor, No rash or lesions Lymph: nl lymph nodes Results Result Diagram: 10/17/16 0450 10/17/16 1355 Results 24 hrs Laboratory Tests Test 10/16/16 16:57 10/16/16 20:29 10/17/16 02:11 10/17/16 04:50 Bedside Glucose 241 H 258 H 314 H White Blood Count 8.7 Red Blood Count 3.87 L Hemoglobin 12.3 Hematocrit 33.4 L Mean Corpuscular Volume 86.3 Mean Corpuscular Hemoglobin 31.8 Mean Corpuscular Hemoglobin Concent 36.8 Red Cell Distribution Width 11.6 Platelet Count 386 Mean Platelet Volume 9.1 Neutrophils % 80.9 H Lymphocytes % 12.3 L Monocytes % 6.4 Eosinophils % 0.0 Basophils % 0.1 Nucleated Red Blood Cells % 0.0 Neutrophils # 7.0 Lymphocytes # 1.1 Monocytes # 0.6 Eosinophils # 0.0 Basophils # 0.0 Nucleated Red Blood Cells # 0.0 Sodium Level 130 L Potassium Level 2.8 *L Chloride Level 94 L Carbon Dioxide Level 28 Anion Gap 11 # Blood Urea Nitrogen 5 L Creatinine 0.50 Glucose Level 252 H Calcium Level 8.5 Phosphorus Level 1.7 L Magnesium Level 1.3 L Test 10/17/16 08:17 10/17/16 12:04 10/17/16 13:55 Bedside Glucose 251 H 192 Potassium Level 2.9 *L Medications Medications Current Medications Lorazepam (Ativan) 0.5 mg Q6H PRN IV ANXIETY Last administered on 10/16/16t 20: 31; Admin Dose 0.5 MG; Start 10/15/16 at 07:00 Ondansetron HCl (Zofran Inj) 4 mg Q6H PRN IV NAUSEA AND/OR VOMITING Last administered on 10/17/16 14:36; Admin Dose 4 MG; Start 10/15/16 at 07:00 Metoclopramide HCl (Reglan) 10 mg Q6H PRN IV NAUSEA AND/OR VOMITING Last administered on 10/17/16 14:36; Admin Dose 10 MG; Start 10/15/16 at 07:00 Morphine Sulfate (morphine) 2 mg Q4H PRN IV PAIN LEVEL 7-10 Last administered on 10/17/16 01:32; Admin Dose 2 MG; Start 10/15/16 at 07:00 Famotidine (Pepcid Iv) 20 mg Q12 IV Last administered on 10/17/16 08:18; Admin Dose 20 MG; Start 10/15/16 at 09:00 Diagnostic Test (Pha) (Accu-Chek) 1 ea 02 XX Last administered on 10/17/16 02: 26; Admin Dose 1 EA; Start 10/16/16 at 02:00 Miscellaneous Information 1 ea NOTE XX ; Start 10/15/16 at 16:00 Glucose (Glutose) 15 gm Q15M PRN PO DECREASED GLUCOSE; Start 10/15/16 at 16:00 Glucose (Glutose) 22.5 gm Q15M PRN PO DECREASED GLUCOSE; Start 10/15/16 at 16: 00 Dextrose (D50w Syringe) 25 ml Q15M PRN IV DECREASED GLUCOSE; Start 10/15/16 at 16:00 Dextrose (D50w Syringe) 50 ml Q15M PRN IV DECREASED GLUCOSE; Start 10/15/16 at 16:00 Glucagon (Glucagen) 1 mg Q15M PRN IM DECREASED GLUCOSE; Start 10/15/16 at 16:00 Glucose (Glutose) 15 gm Q15M PRN BUCCAL DECREASED GLUCOSE; Start 10/15/16 at 16 :00 Enoxaparin Sodium 40 mg 40 mg DAILY SC Last administered on 10/17/16 08:21; Admin Dose 40 MG; Start 10/16/16 at 14:30 Sodium Chloride (NS) 1,000 ml @ 100 mls/hr Q10H IV Last administered on 03:20; Admin Dose 100 MLS/HR; Start 10/17/16 at 03:00 Insulin Glargine (Lantus) 22 unit HS SC ; Start 10/17/16 at 21:00 Pantoprazole (Protonix Iv) 40 mg DAILY@06 IV Last administered on 10/17/16t 12: 06; Admin Dose 40 MG; Start 10/17/16 at 12:00 YANG FIORE MD October 17, 2016 15:37
[2016-10-17 19:20] VITALS: BP 174/98; RESP 19
[2016-10-17] MEDS: LORAZEPAM 2 MG INJ IV PRN (23:06)
[2016-10-17] MEDS: INSULIN GLARGINE [LANtus] 3 ML PEN SC SCH (23:28)
[2016-10-18] VITALS (14 sets, daily range): BP systolic 117–175; BP diastolic 72–103; PULSE 86–97; RESP 14–32
[2016-10-18] MEDS: ACCUCHECK AT 2AM (Patients on SS coverage) XX SCH (02:00)
[2016-10-18] MEDS: ONDANSETRON 4 MG INJ IV PRN ×2 (04:05→20:34)
[2016-10-18 05:10] LABS: ADD SCAN DIFF NO
[2016-10-18 05:29] LABS: BASOPHILS % 0.2 % (0.0-2.0); EOSINOPHILS % 0.1 % (0.0-7.0); HEMATOCRIT 32.6 % (37.0-47.0); LYMPHOCYTES # 1.6 10^3/ul (0.8-2.9); LYMPHOCYTES % 19.1 % (15.0-51.0); MEAN CORPUSCULAR HEMOGLOBIN 32.2 pg (29.0-33.0); MEAN CORPUSCULAR HGB CONC 36.8 g/dl (32.0-37.0); MEAN CORPUSCULAR VOLUME 87.4 fl (82.0-101.0); MEAN PLATELET VOLUME 8.7 fl (7.4-10.4); MONOCYTE # 0.6 10^3/ul (0.3-0.9); MONOCYTES % 7.5 % (0.0-11.0); NEUTROPHIL # 6.1 10^3/ul (1.6-7.5); NEUTROPHILS % 72.9 % (39.0-77.0); PLATELET COUNT 358 10^3/UL (140-415); RED BLOOD COUNT 3.73 10^6/ul (4.20-5.40); RED CELL DISTRIBUTION WIDTH 11.8 % (11.5-14.5); WHITE BLOOD COUNT 8.4 10^3/ul (4.8-10.8)
[2016-10-18 05:34] LABS: CALCIUM 8.2 mg/dl (8.4-10.2); CREATININE 0.6 mg/dl (0.44-1.00); MAGNESIUM 1.6 mg/dl (1.7-2.5); PHOSPHORUS 2.2 mg/dl (2.5-4.9)
[2016-10-18 05:38] LABS: POTASSIUM 2.7 mmol/L (3.5-5.1)
[2016-10-18] MEDS: PANTOPRAZOLE 40 MG INJ IV SCH (05:48)
[2016-10-18] MEDS: METOCLOPRAMIDE 10 MG INJ IV PRN ×3 (06:46→16:57)
[2016-10-18] MEDS: morphine 2 MG INJ IV PRN ×2 (06:47→16:59)
[2016-10-18] MEDS: POTASSIUM CHLORIDE 250 ML IVPB SCH ×2 (08:39→12:41)
[2016-10-18] MEDS: DEXTROSE 5%-0.45% NACL 1,000 ML IV SCH ×2 (08:39→20:34)
[2016-10-18] MEDS: FAMOTIDINE 20 MG INJ IV SCH (09:00)
[2016-10-18] MEDS: INSULIN ASPART [NOVOLOG] 3 ML PEN SC SCH ×4 (09:00→20:46)
[2016-10-18] MEDS: ENOXAPARIN 40 MG/0.4 ML SYG SC SCH (09:00)
[2016-10-18] MEDS: LORAZEPAM 2 MG INJ IV PRN ×2 (10:58→20:33)
--- NOTE | 2016-10-18 15:06 | PN ---
DATE: 10/18/2016 SUBJECTIVE: This is an internal medicine followup note. The patient was scheduled for endoscopy y ; however, this was canceled as patient had low potassium, pending further GI recommendation s. She is still currently n.p.o., was refusing any oral intake. She has had no significant nausea, vomiting today. VITAL SIGNS: Temperature 98, pulse 97, blood pressure 117/70, O2 saturation 96% on room air. NECK: Supple, no JVD or lymphadenopathy. CARDIAC: S1, S2, no added sounds or murmurs. CHEST: Diminished air entry bilaterally. ABDOMEN: Soft, nontender. No guarding or rebound. EXTREMITIES: No cyanosis, clubbing, edema. NEUROLOGIC: Grossly intact. No focal deficits. LABORATORY DATA: White count 8.4, hemoglobin 12. Potassium 2.7. Repeat 3.5, BUN 8, creatinine 0.6 , mag 1.6. IMPRESSION AND PLAN 1. Intractable nausea and vomiting, possibly secondary to gastroparesis. 2. Possible esophagitis. 3. History of psychiatric disorder. 4. History of cervical cancer. 5. History of diabetes mellitus. The patient will require: 1. Continue IV fluids. 2. Glycemic management. 3. Gastrointestinal recommendations pending endoscopy. 4. Encourage p.o. intake. 5. Deep venous thrombosis and gastrointestinal prophylaxis. Dictated By: JOSHUA CARDOSO/MELISSA Conf#: [id number] DID#: [id number]
[2016-10-18] MEDS ORDERED: MAGNESIUM SULFATE 2 GM/50 ML 50 ML IVPB ONE (16:00)
[2016-10-18] MEDS ORDERED: PROPOFOL 20 ML ONE (18:18)
[2016-10-18] MEDS ORDERED: LABETALOL HCL 20MG INJ ONE (18:51)
[2016-10-18] MEDS ORDERED: LABETALOL HCL 20MG INJ IV PRN (19:00)
[2016-10-18] MEDS: METOCLOPRAMIDE 10 MG INJ IV SCH ×2 (19:30→23:53)
[2016-10-18] MEDS: SUCRALFATE (100 MG/ML) 10ML CUP PO SCH (20:35)
[2016-10-18] MEDS: INSULIN GLARGINE [LANtus] 3 ML PEN SC SCH (20:48)
[2016-10-18] MEDS ORDERED: DEXTROSE 5%-0.45% NACL 1,000 ML IV SCH (23:35)
[2016-10-19 00:01] VITALS: BP 129/77; PULSE 82; RESP 17
[2016-10-19] MEDS: INSULIN ASPART [NOVOLOG] 3 ML PEN SC SCH ×7 (01:00→21:10)
[2016-10-19] MEDS: ACCUCHECK AT 2AM (Patients on SS coverage) XX SCH (02:28)
[2016-10-19] MEDS: morphine 2 MG INJ IV PRN ×4 (02:29→22:05)
[2016-10-19] MEDS: LORAZEPAM 2 MG INJ IV PRN ×3 (04:35→20:02)
[2016-10-19] MEDS: PANTOPRAZOLE 40 MG INJ IV SCH (04:42)
[2016-10-19 04:55] LABS: ADD SCAN DIFF NO
[2016-10-19 04:59] LABS: BASOPHILS % 0.2 % (0.0-2.0); EOSINOPHILS % 0.2 % (0.0-7.0); HEMOGLOBIN 11.3 g/dl (12.0-16.0); LYMPHOCYTES # 1.6 10^3/ul (0.8-2.9); LYMPHOCYTES % 19.2 % (15.0-51.0); MEAN CORPUSCULAR HEMOGLOBIN 31.6 pg (29.0-33.0); MEAN CORPUSCULAR HGB CONC 36.5 g/dl (32.0-37.0); MEAN CORPUSCULAR VOLUME 86.6 fl (82.0-101.0); MEAN PLATELET VOLUME 8.7 fl (7.4-10.4); MONOCYTE # 0.5 10^3/ul (0.3-0.9); MONOCYTES % 5.8 % (0.0-11.0); NEUTROPHIL # 6.2 10^3/ul (1.6-7.5); NEUTROPHILS % 74.4 % (39.0-77.0); PLATELET COUNT 283 10^3/UL (140-415); RED BLOOD COUNT 3.58 10^6/ul (4.20-5.40); WHITE BLOOD COUNT 8.3 10^3/ul (4.8-10.8)
[2016-10-19 05:32] LABS: CALCIUM 8.3 mg/dl (8.4-10.2); CREATININE 0.57 mg/dl (0.44-1.00); MAGNESIUM 2.3 mg/dl (1.7-2.5); POTASSIUM 3.1 mmol/L (3.5-5.1)
[2016-10-19] MEDS: METOCLOPRAMIDE 10 MG INJ IV SCH ×3 (05:55→17:56)
[2016-10-19 07:39] VITALS: BP 110/64; RESP 18
[2016-10-19] MEDS: SUCRALFATE (100 MG/ML) 10ML CUP PO SCH ×4 (09:24→20:59)
[2016-10-19] MEDS: ENOXAPARIN 40 MG/0.4 ML SYG SC SCH (09:24)
--- NOTE | 2016-10-19 11:26 | PN ---
DATE: 10/19/2016 SUBJECTIVE: The patient is stable this morning. No nausea, no vomiting. She tolerated small amoun t of breakfast. She underwent endoscopy yesterday, the results of which are pending. PHYSICAL EXAMINATION: VITAL SIGNS: Temperature 98, pulse 92, blood pressure 110/64, O2 saturation 99% on 2 L nasal cannul a. NECK: Supple. No JVD or lymphadenopathy. CARDIAC: S1, S2, no added sounds or murmurs. CHEST: Diminished air entry bilaterally but no rales or wheezes. ABDOMEN: Soft, nontender. No guarding or rebound. EXTREMITIES: No cyanosis, clubbing, edema. NEUROLOGIC: Generalized weakness, but no focal deficits. IMPRESSION AND PLAN: 1. Intractable nausea and vomiting, possibly secondary to gastroparesis. 2. Status post endoscopy. Results pending. 3. History of psychiatric disorder. 4. History of cervical cancer. PLAN: 1. Encourage p.o. intake. 2. Continue PPI. 3. GI recommendations. 4. Encourage ambulation. 5. Continue current glycemic management. Point-of- care glucose appears to be slowly improving. M ay need adjustment as diet improves. Dictated By: JOSHUA CARDOSO/MELISSA Conf#: [id number] DID#: [id number]
[2016-10-19] MEDS ORDERED: POTASSIUM CHLORIDE 250 ML IVPB ONE (11:30)
--- NOTE | 2016-10-19 17:25 | PN ---
Date/Time of Note Date/Time of Note DATE: 10/19/16 TIME: 17:20 Assessment/Plan VTE Prophylaxis VTE Prophylaxis Intervention: SCD's Lines/Catheters [facility] PICC Line Central line still needed: Yes Urinary Cath still in place: No Assessment/Plan Chief Complaint/Hosp Course 36 year old female with past medical history of Diabetes mellitus,hypertension, bipolar disorder.cervical cancer seen at the ER with complaint of persistent vomiting.Present condition stated 7 days ago as persistent vomiting ,nausea with no associated abdominal pain,fever ,diarrhea.Patient claims tolerating liquid .No medications taken. Emergency room course revealed hyperkalemia,elevated blood sugar .Patient was subsequently admitted to ICU and eventually transferred to the floor.She had episodes of vomiting ,no abdominal pain and CT scan of abdomen/pelvis revealed No acute abnormality identified within the abdomen and pelvis. Mild thickening of the distal esophagus represents nonspecific esophagitis.Mild right renal cortical scarring..Patient had hypokalemia where a total of 80 meq was KCL was given however subsequent recheck revealed K 2.9 hence EGD was rescheduled' Problems: Assessment/Plan EGD 10/18/2016 Ulcerated esophagitis gastritis r/o H pylori Hypokalemia 3.2 Nausea/vomiting Resolved Diabetes mellitus Mild thickening of the distal esophagus represents nonspecific esophagitis.by CT scan Diabetes mellitus Bipolar disorder Plan * continue present management * correct hypokalemia * resume regular diet Subjective 24 Hr Interval Summary Free Text/Dictation * Course reviewed with RN * patient seen and examined * EGD 10/18/2016 * Severe ulcerated esophagitis * Gastritis r/o H pylori * Denies vomiting * K 3.2 Exam/Review of Systems Vital Signs Vitals Vital Signs Date Time Temp Pulse Resp B/P Pulse Ox O2 Delivery O2 Flow Rate FiO2 10/19/16 07:39 98.3 92 18 110/64 99 10/19/16 00:01 Nasal Cannula 2.0 Intake and Output 10/18/16 10/18/16 10/19/16 15:00 23:00 07:00 Intake Total 250 ml 975 ml 1125 ml Balance 250 ml 975 ml 1125 ml Exam Constitutional: alert Neck: non-tender, supple Respiratory: clear to auscultation, normal air movement Cardiovascular: nl pulses, regular rate and rhythm Gastrointestinal: non-tender, soft Musculoskeletal: nl extremities to inspection, nl gait and stance Results Result Diagram: 10/19/16 0438 10/19/16 0438 Results 24 hrs Laboratory Tests Test 10/18/16 20:45 10/19/16 02:26 10/19/16 04:38 10/19/16 04:40 Bedside Glucose 119 141 165 White Blood Count 8.3 Red Blood Count 3.58 L Hemoglobin 11.3 L Hematocrit 31.0 L Mean Corpuscular Volume 86.6 Mean Corpuscular Hemoglobin 31.6 Mean Corpuscular Hemoglobin Concent 36.5 Red Cell Distribution Width 12.0 Platelet Count 283 # Mean Platelet Volume 8.7 Neutrophils % 74.4 Lymphocytes % 19.2 Monocytes % 5.8 Eosinophils % 0.2 Basophils % 0.2 Nucleated Red Blood Cells % 0.0 Neutrophils # 6.2 Lymphocytes # 1.6 Monocytes # 0.5 Eosinophils # 0.0 Basophils # 0.0 Nucleated Red Blood Cells # 0.0 Sodium Level 133 L Potassium Level 3.1 L Chloride Level 100 Carbon Dioxide Level 28 Anion Gap 8 Blood Urea Nitrogen 7 Creatinine 0.57 Glucose Level 184 Calcium Level 8.3 L Phosphorus Level 3.0 Magnesium Level 2.3 Test 10/19/16 08:30 10/19/16 11:36 Bedside Glucose 184 222 H Medications Medications Current Medications Lorazepam (Ativan) 0.5 mg Q6H PRN IV ANXIETY Last administered on 10/19/16 12: 52; Admin Dose 0.5 MG; Start 10/15/16 at 07:00 Ondansetron HCl (Zofran Inj) 4 mg Q6H PRN IV NAUSEA AND/OR VOMITING Last administered on 10/18/16 20:34; Admin Dose 4 MG; Start 10/15/16 at 07:00 Metoclopramide HCl (Reglan) 10 mg Q6H PRN IV NAUSEA AND/OR VOMITING Last administered on 10/18/16 16:57; Admin Dose 10 MG; Start 10/15/16 at 07:00 Morphine Sulfate (morphine) 2 mg Q4H PRN IV PAIN LEVEL 7-10 Last administered on 10/19/16 09:34; Admin Dose 2 MG; Start 10/15/16 at 07:00 Diagnostic Test (Pha) (Accu-Chek) 1 ea 02 XX Last administered on 10/19/16 02: 28; Admin Dose 1 EA; Start 10/16/16 at 02:00 Miscellaneous Information 1 ea NOTE XX ; Start 10/15/16 at 16:00 Glucose (Glutose) 15 gm Q15M PRN PO DECREASED GLUCOSE; Start 10/15/16 at 16:00 Glucose (Glutose) 22.5 gm Q15M PRN PO DECREASED GLUCOSE; Start 10/15/16 at 16: 00 Dextrose (D50w Syringe) 25 ml Q15M PRN IV DECREASED GLUCOSE; Start 10/15/16 at 16:00 Dextrose (D50w Syringe) 50 ml Q15M PRN IV DECREASED GLUCOSE; Start 10/15/16 at 16:00 Glucagon (Glucagen) 1 mg Q15M PRN IM DECREASED GLUCOSE; Start 10/15/16 at 16:00 Glucose (Glutose) 15 gm Q15M PRN BUCCAL DECREASED GLUCOSE; Start 10/15/16 at 16 :00 Enoxaparin Sodium (Lovenox) 40 mg DAILY SC Last administered on 10/19/16 09:24 ; Admin Dose 40 MG; Start 10/16/16 at 14:30 Insulin Glargine (Lantus) 22 unit HS SC Last administered on 10/18/16 20:48; Admin Dose 22 UNIT; Start 10/17/16 at 21:00 Pantoprazole (Protonix Iv) 40 mg DAILY@06 IV Last administered on 10/19/16 04: 42; Admin Dose 40 MG; Start 10/17/16 at 12:00 Insulin Aspart (Novolog Insulin Pen) NOVOLOG *MILD* ALGORI... Q4 SC Last administered on 10/19/16 09:26; Admin Dose 2 UNIT; Start 10/18/16 at 09:00 Sucralfate (Carafate Susp) 1 gm QID PO Last administered on 10/19/16 12:47; Admin Dose 1 GM; Start 10/18/16 at 21:00 Metoclopramide HCl (Reglan) 10 mg Q6 IV Last administered on 10/19/16 12:47; Admin Dose 10 MG; Start 10/18/16 at 19:30 YANG FIORE MD October 19, 2016 17:25
[2016-10-19 19:52] VITALS: BP 91/50; RESP 20
[2016-10-19] MEDS: INSULIN GLARGINE [LANtus] 3 ML PEN SC SCH (21:00)
[2016-10-19] MEDS: ONDANSETRON 4 MG INJ IV PRN (22:05)
[2016-10-20] MEDS: INSULIN ASPART [NOVOLOG] 3 ML PEN SC SCH ×6 (01:00→20:06)
[2016-10-20] MEDS ORDERED: OXCA300T41 PO (01:30)
[2016-10-20] MEDS ORDERED: LURA20TA PO (01:30)
[2016-10-20] MEDS ORDERED: NORT50CA PO (01:30)
[2016-10-20] MEDS ORDERED: FER325 PO (01:30)
[2016-10-20] MEDS ORDERED: DOXY100T20 PO (01:30)
[2016-10-20] MEDS: ACCUCHECK AT 2AM (Patients on SS coverage) XX SCH (02:00)
[2016-10-20] MEDS: METOCLOPRAMIDE 10 MG INJ IV PRN (02:02)
[2016-10-20] MEDS: morphine 2 MG INJ IV PRN ×5 (02:03→19:41)
[2016-10-20] MEDS: PANTOPRAZOLE 40 MG INJ IV SCH (06:04)
[2016-10-20] MEDS: METOCLOPRAMIDE 10 MG INJ IV SCH ×4 (06:04→17:34)
[2016-10-20 06:10] LABS: POTASSIUM 3.3 mmol/L (3.5-5.1)
[2016-10-20 06:12] LABS: CREATININE 0.64 mg/dl (0.44-1.00)
[2016-10-20 06:13] LABS: CALCIUM 8.2 mg/dl (8.4-10.2); MAGNESIUM 2.1 mg/dl (1.7-2.5)
[2016-10-20 07:00] VITALS: BP 92/52; RESP 18
[2016-10-20] MEDS: SUCRALFATE (100 MG/ML) 10ML CUP PO SCH ×4 (09:25→20:01)
[2016-10-20] MEDS: ENOXAPARIN 40 MG/0.4 ML SYG SC SCH (09:27)
[2016-10-20] MEDS: LORAZEPAM 2 MG INJ IV PRN ×2 (09:32→17:34)
--- NOTE | 2016-10-20 09:59 | CONS ---
Date/Time of Note Date/Time of Note DATE: 10/20/16 TIME: 09:55 Assessment/Plan Assessment/Plan Additional Assessment/Plan Intractable nausea and vomiting Status post EGD 10/18/2016: * Ulcerated esophagitis * Gastritis, biopsies negative Hypokalemia Diabetes mellitus CT abdomen: Mild thickening of the distal esophagus represents nonspecific esophagitis Bipolar disorder Plan: Correct hypokalemia per primary Advance diet as tolerated Further recommendations depend on clinical course Patient seen in collaboration with Dr. Chapman Consultation Date/Type/Reason Admit Date/Time Oct 15, 2016 at 05:20 Initial Consult Date 10/17/16 Type of Consultation: Gastroenterology Referring Provider: J[facility]HUA VELA MD, [facility] HR Interval Summary Free Text/Dictation Tolerating diet Denies nausea vomiting Hemoglobin stable Exam/Review of Systems Vital Signs Vitals Vital Signs Date Time Temp Pulse Resp B/P Pulse Ox O2 Delivery O2 Flow Rate FiO2 10/20/16 07:00 98.7 105 18 92/52 98 10/19/16 00:01 Nasal Cannula 2.0 Intake and Output 10/19/16 10/19/16 10/20/16 15:00 23:00 07:00 Intake Total 250 ml 1090 ml 420 ml Output Total 1500 ml Balance 250 ml -410 ml 420 ml Exam Constitutional: alert, oriented, well developed Psych: nl mood/affect Head: normocephalic Eyes: EOMI, nl conjunctiva, nl lids ENMT: nl external ears & nose, nl lips & teeth, nl nasal mucosa & septum Respiratory: clear to auscultation, normal air movement Cardiovascular: regular rate and rhythm Gastrointestinal: soft, non-tender Musculoskeletal: nl extremities to inspection Neurological: [employer] II-XII intact Results Result Diagram: 10/19/16 0438 10/20/16 0429 Results 24 hrs Laboratory Tests Test 10/19/16 11:36 10/19/16 17:29 10/19/16 21:04 10/20/16 00:58 Bedside Glucose 222 H 133 204 163 Test 10/20/16 04:29 10/20/16 08:51 Sodium Level 138 Potassium Level 3.3 L Chloride Level 101 Carbon Dioxide Level 27 Anion Gap 13 Blood Urea Nitrogen 10 Creatinine 0.64 Glucose Level 164 Calcium Level 8.2 L Magnesium Level 2.1 Bedside Glucose 150 Medications Medications Current Medications Lorazepam (Ativan) 0.5 mg Q6H PRN IV ANXIETY Last administered on 10/20/16 09: 32; Admin Dose 0.5 MG; Start 10/15/16 at 07:00 Ondansetron HCl (Zofran Inj) 4 mg Q6H PRN IV NAUSEA AND/OR VOMITING Last administered on 10/19/16 22:05; Admin Dose 4 MG; Start 10/15/16 at 07:00 Metoclopramide HCl (Reglan) 10 mg Q6H PRN IV NAUSEA AND/OR VOMITING Last administered on 10/20/16 02:02; Admin Dose 10 MG; Start 10/15/16 at 07:00 Morphine Sulfate (morphine) 2 mg Q4H PRN IV PAIN LEVEL 7-10 Last administered on 10/20/16 06:04; Admin Dose 2 MG; Start 10/15/16 at 07:00 Diagnostic Test (Pha) (Accu-Chek) 1 ea 02 XX Last administered on 10/19/16 02: 28; Admin Dose 1 EA; Start 10/16/16 at 02:00 Miscellaneous Information 1 ea NOTE XX ; Start 10/15/16 at 16:00 Glucose (Glutose) 15 gm Q15M PRN PO DECREASED GLUCOSE; Start 10/15/16 at 16:00 Glucose (Glutose) 22.5 gm Q15M PRN PO DECREASED GLUCOSE; Start 10/15/16 at 16: 00 Dextrose (D50w Syringe) 25 ml Q15M PRN IV DECREASED GLUCOSE; Start 10/15/16 at 16:00 Dextrose (D50w Syringe) 50 ml Q15M PRN IV DECREASED GLUCOSE; Start 10/15/16 at 16:00 Glucagon (Glucagen) 1 mg Q15M PRN IM DECREASED GLUCOSE; Start 10/15/16 at 16:00 Glucose (Glutose) 15 gm Q15M PRN BUCCAL DECREASED GLUCOSE; Start 10/15/16 at 16 :00 Enoxaparin Sodium (Lovenox) 40 mg DAILY SC Last administered on 10/20/16 09:27 ; Admin Dose 40 MG; Start 10/16/16 at 14:30 Insulin Glargine (Lantus) 22 unit HS SC Last administered on 10/18/16 20:48; Admin Dose 22 UNIT; Start 10/17/16 at 21:00 Pantoprazole (Protonix Iv) 40 mg DAILY@06 IV Last administered on 10/20/16 06: 04; Admin Dose 40 MG; Start 10/17/16 at 12:00 Insulin Aspart (Novolog Insulin Pen) NOVOLOG *MILD* ALGORI... Q4 SC Last administered on 10/19/16 21:10; Admin Dose 2 UNIT; Start 10/18/16 at 09:00 Sucralfate (Carafate Susp) 1 gm QID PO Last administered on 10/20/16 09:25; Admin Dose 1 GM; Start 10/18/16 at 21:00 Metoclopramide HCl (Reglan) 10 mg Q6 IV Last administered on 10/20/16 06:04; Admin Dose 10 MG; Start 10/18/16 at 19:30 PANTERA BARTLETT October 20, 2016 09:59
[2016-10-20] MEDS ORDERED: POTASSIUM CHLORIDE (SR) 20 MEQ TAB PO STA (13:52)
[2016-10-20] MEDS ORDERED: POTASSIUM CHLORIDE 20 MEQ POWDER FOR ORAL SOLN PO SCH (14:31)
--- NOTE | 2016-10-20 14:37 | PN ---
DATE: 10/20/2016 MEDICAL FOLLOWUP SUBJECTIVE: The patient remained stable overnight, no new events. This morning she is having incre ased p.o. intake. According to staff, she is now taking 30% of her p.o. intake this morning. Yeste rday, she was ambulating without assistance. Still complaining of mild nausea. PHYSICAL EXAMINATION: VITAL SIGNS: Temperature 98, pulse is 100, blood pressure 92/52, O2 saturation 96% on room air. NECK: Supple. No JVD or lymphadenopathy. CARDIAC: S1, S2, no added sounds or murmurs. CHEST: Diminished air entry bilaterally. ABDOMEN: Soft, nontender. No guarding or rebound. EXTREMITIES: No cyanosis, clubbing, edema. NEUROLOGIC: Grossly intact. No focal deficits. LABORATORY DATA: Potassium 3.3 this morning. IMPRESSION: 1. Dehydration. 2. Intractable nausea and vomiting, likely secondary to gastroparesis. 3. History of bipolar disorder. 4. Status post EGD which showed thickening of distal esophagus with nonspecific esophagitis. PLAN: 1. The patient beginning to tolerate p.o. 2. Continue to encourage p.o. diet as tolerated. 3. Replace potassium. 4. Encourage ambulation. 5. Anticipate discharge tomorrow. I will ask supervisor case loading and social security assessor to ensure she has adeq uate assistance at home prior to discharge. Dictated By: JOSHUA CARDOSO/MELISSA Conf#: [id number] DID#: [id number]
--- NOTE | 2016-10-20 16:14 | GILP ---
DATE OF PROCEDURE: 10/18/2016 NAME OF PROCEDURE: Esophagogastroduodenoscopy with biopsies. SURGEON: Yang Chapman MD. HISTORY AND INDICATIONS: The patient with persistent nausea and vomiting. PREMEDICATION: Monitored anesthesia care by anesthesiologist. INSTRUMENT USED: Olympus panendoscopy. TECHNIQUE: After informed consent, with the patient/relatives understanding the procedure, its indic ations, potential risks and complications, including but not limited to: allergic reaction, bleeding , perforation or infection, and after all pertinent questions were answered to the patients satisfac tion, the patient/relatives signed witnessed informed consent. Following this, premedication was administered slowly IV push under careful cardiovascular and respi ratory monitoring with pulse oximetry, automatic blood pressure and feeder operator. Once the sedative effect was achieved the patient was place in the left lateral decubitus, the panen doscope was introduced and advanced under visual control. Careful examination of the upper gastrointestinal tract, both on insertion as well as withdrawal of the instrument disclosed the following findings: ESOPHAGUS: The esophagus shows severe erythema, edema and ulceration of the distal third of the esop hagus. Biopsies were obtained to rule out Rodriguez's esophagus. STOMACH: Upon entrance to the stomach air was insufflated, the gastric schmidt distended normally. Th ere is erythema and edema of the mucosa of a moderate degree. Biopsies were obtained to rule out H. pylori infection. PYLORUS: The pylorus appears patent and within normal limits, with no evidence of gastric outlet obs truction. DUODENUM: The duodenal mucosa was carefully examined in the duodenal bulb as well as the second port ion of the duodenum and appears unremarkable with no evidence of duodenitis, ulcer or neoplasm. The instrument was then withdrawn, the patient tolerated the procedure well and was transfer out of the endoscopy suite awake, and in good condition to continue recovery under observation IMPRESSION: 1. Severe ulcerated esophagitis. Biopsies obtained. 2. Gastritis, rule out Helicobacter pylori infection. Biopsies obtained. RECOMMENDATIONS: 1. Protonix 40 mg b.i.d. 2. Reglan 10 mg q.i.d. 3. Liquid Carafate 1 gram q.i.d. 4. Pathology will be reviewed as soon as available, and followup endoscopy in 8 weeks is recommende d. Dictated By: YANG CHAPMAN MS/MELISSA Conf#: [id number] DID#: [id number] CC: YANG CHAPMAN;*[facility]*
[2016-10-20 20:05] VITALS: BP 97/52; RESP 20
[2016-10-20] MEDS: INSULIN GLARGINE [LANtus] 3 ML PEN SC SCH (20:08)
[2016-10-21] MEDS: LORAZEPAM 2 MG INJ IV PRN ×2 (00:05→14:06)
[2016-10-21] MEDS: METOCLOPRAMIDE 10 MG INJ IV SCH ×3 (00:05→12:14)
[2016-10-21] MEDS ORDERED: ACCUCHECK AT 2AM (Patients on SS coverage) XX SCH (02:00)
[2016-10-21] MEDS: PANTOPRAZOLE 40 MG INJ IV SCH (06:32)
[2016-10-21 07:00] VITALS: BP 79/46; RESP 20
[2016-10-21] MEDS: Insulin NOVOLOG SS MILD Algorithm (SS with meals and bedtime) SC SCH ×2 (07:20→12:18)
[2016-10-21] MEDS ORDERED: INSULIN ASPART [NOVOLOG] 3 ML PEN SC SCH (07:20)
[2016-10-21] MEDS: morphine 2 MG INJ IV PRN (07:50)
[2016-10-21] MEDS: SUCRALFATE (100 MG/ML) 10ML CUP PO SCH ×2 (09:16→12:13)
[2016-10-21] MEDS: ENOXAPARIN 40 MG/0.4 ML SYG SC SCH (09:19)
--- NOTE | 2016-10-21 14:07 | PDOCDIS ---
Discharge Instructions DIAGNOSIS Discharge Diagnosis: Ulcerative esophagitis; diabetes CONDITION Patient Condition: Fair HOME CARE INSTRUCTIONS: Diet Instructions: RegularSpecial Diet: 1800 ADA ACTIVITY: Activity Restrictions: Slowly Increase Activity Rest between Activity Do not operate Machinery Do not operate Power Tool FOLLOW UP/APPOINTMENTS Appointments Primary care physician 1 week probation counselor-Dr. Chapman of in 6 weeks SHAYNA SCHWARTZ MD October 21, 2016 14:07
[2016-10-21] MEDS ORDERED: PANT40TA4 PO (14:10)
[2016-10-21] MEDS ORDERED: CARAS PO (14:10)
--- NOTE | 2016-10-21 14:15 | DS ---
Date/Time of Note Date/Time of Note DATE: 10/21/16 TIME: 14:10 Discharge Summary Admission/Discharge Info Admit Date/Time Oct 15, 2016 at 05:20 Discharge Date/Time 10/21/2016 Final Diagnosis Ulcerative esophagitis; diabetes mellitus type 2; hypertension; hyperlipidemia; gastroesophageal reflux disease; lower extremity nonhealing ulcers; bipolar affective disorder; reported recent diagnosis cancer of the cervix; Patient Condition: Fair Consults Gastroenterology Procedures Upper endoscopy/EGD; CT scan of chest and abdomen Hx of Present Illness Patient is a 36 yo female with history of Diabetes, CAD, HTN, CVA, LLE DVT, psych disorder, bilateral non-healing ulcer and cervical Cancer who presented to ER with 6 days history of intractable vomiting. Initially food that she ate would come out, then mainly clear saliva. She also reported generalized body pain. at the time, I saw her, she was sitting on a chair in ER and was intermittently vomiting and looked uncomfortable. She was not fully cooperative and didn't let me do physical exam saying her whole body hurts. Patient follows- up at [facility] for her lower ext ulcer. She told me that she was recently diagnosed with cervical cancer and currently awaiting treatment. When pt came to ER, her Glucose was 278, K 5.5, HCO3 16, AG 26 and UA with 3+ ketones. CT a/p showed no acute abnormality identified within the abdomen and pelvis, mild thickening of the distal esophagus represents nonspecific esophagitis and mild right renal cortical scarring. In ER, she received, IVF, anti-emetics, pain meds and Ativan. . Hospital Course 36 year old female with past medical history of Diabetes mellitus,hypertension, bipolar disorder.cervical cancer seen at the ER with complaint of persistent vomiting.Present condition stated 7 days ago as persistent vomiting ,nausea with no associated abdominal pain,fever ,diarrhea.Patient claims tolerating liquid .No medications taken. Emergency room course revealed hyperkalemia,elevated blood sugar .Patient was subsequently admitted to ICU and eventually transferred to the floor.She had episodes of vomiting ,no abdominal pain and CT scan of abdomen/pelvis revealed No acute abnormality identified within the abdomen and pelvis. Mild thickening of the distal esophagus represents nonspecific esophagitis.Mild right renal cortical scarring..Patient had hypokalemia where a total of 80 meq was KCL was given however subsequent recheck revealed K 2.9 hence EGD was rescheduled' 36-year-old female admitted with above symptoms. She has underwent treatment with upper endoscopy finding erosive esophagitis with ulcerations. She has been treated with combination medications with significant improvement in her's status. She is now stable for discharge home. She has no known communicable diseases for rehab potential is fair. She is not a hazard to herself or others. Home Meds Active Scripts Pantoprazole* (Pantoprazole*) 40 Mg Tablet.dr, 40 MG PO AC BREAKFAST for 30 Days , TAB 1 Refill Prov:SHAYNA SCHWARTZ MD 10/21/16 Sucralfate* (Carafate*) 1 Gm/10 Ml Susp, 1 GM PO QID for 30 Days Prov:SHAYNA SCHWARTZ MD 10/21/16 Ibuprofen* (Motrin*) 600 Mg Tab, 600 MG PO Q6H Y for PAIN AND OR ELEVATED TEMP, #30 TAB Prov:SENA REYES MD 08/18/16 Cephalexin* (Keflex*) 500 Mg Capsule, 500 MG PO TID for 5 Days, CAP Prov:ANDREA VELEZ MD 04/07/16 Fluconazole* (Diflucan*) 150 Mg Tablet, 150 MG PO ONCE, #1 TAB Prov:ANDREA VELEZ MD 04/07/16 Reported Medications Ferrous Sulfate* (Ferrous Sulfate*) 325 Mg Tabec, 325 MG PO BID, TAB 10/20/16 Doxycycline Hyclate* (Doxycycline Hyclate*) 100 Mg Tablet.dr, 100 MG PO BID, TAB 10/20/16 Nortriptyline Hcl* (Nortriptyline Hcl*) 50 Mg Capsule, 50 MG PO QHS, TAB 10/20/16 Oxcarbazepine* (Oxcarbazepine*) 300 Mg Tablet, 300 MG PO BID, TAB 10/20/16 Lurasidone Hcl (LATUDA) 20 Mg Tablet, 20 MG PO QHS, #30 TAB 10/20/16 Phenytoin* (Dilantin* Chew) 50 Mg Tab.chew, 50 MG PO BID, TAB.CHEW 04/07/16 Acetaminophen with Codeine (Acetaminophen-Cod #3 Tablet) 1 Each Tablet, 1 TAB PO Q6H for 7 Days, #30 TAB 04/07/16 Aspirin* (Aspirin* Chew) 81 Mg Tab.chew, 81 MG PO DAILY, TAB.CHEW 10/21/16 Zolpidem Tartrate* (Zolpidem Tartrate*) 10 Mg Tablet, 10 MG PO QHS Y for INSOMNIA for 30 Days, #30 TAB 11/03/15 Clonazepam* (Clonazepam*) 1 Mg Tablet, 1 MG PO BID Y for ANXIETY for 15 Days, # 30 TAB 11/03/15 Metoprolol Tartrate* (Lopressor*) 50 Mg Tab, 50 MG PO BID for 30 Days, #60 TAB 11/03/15 Atorvastatin* (Atorvastatin*) 40 Mg Tablet, 40 MG PO QHS for 30 Days, #30 TAB 11/03/15 Ibuprofen* (Ibuprofen*) 600 Mg Tablet, 600 MG PO Q6H for 5 Days, #12 TAB 11/03/15 Insulin Lispro (Humalog) 100 U/Ml Cartridge, 5 SC SLIDING SCALE ACHS, EA 07/15/14 Insulin Glargine* (Lantus*) 100 Unit/Ml Soln, 15 UNIT SC HS, EA 07/15/14 Pending Labs Laboratory Tests Test 10/20/16 17:37 10/20/16 20:03 10/21/16 09:15 10/21/16 12:13 Bedside Glucose 171mg/dL (70-220) 184mg/dL (70-220) 140mg/dL (70-220) 192mg/dL (70-220) SHAYNA SCHWARTZ MD October 21, 2016 14:15
== END 2016-10-21 15:00 | disposition home or self-care (01) | DRG 380 ==
LOC: E/R 20:53 → MS4 10-15 05:20 → MS1 10-16 23:59
PROVIDERS: ADMIT Internal Medicine; ATTEND Internal Medicine
PROC: 02HV33Z Insertion of Infusion Device into Superior Vena Cava, Percutaneous Approach (ICD-10-PCS; 2016-10-15)
PROC: B548ZZA Ultrasonography of Superior Vena Cava, Guidance (ICD-10-PCS; 2016-10-15)
PROC: 0DB68ZX Excision of Stomach, Via Natural or Artificial Opening Endoscopic, Diagnostic (ICD-10-PCS; 2016-10-18)
PROC: 0DB28ZX Excision of Middle Esophagus, Via Natural or Artificial Opening Endoscopic, Diagnostic (ICD-10-PCS; principal; 2016-10-18 20:30)
DX: K22.10 Ulcer of esophagus without bleeding (principal); E13.10 Other specified diabetes mellitus with ketoacidosis without coma; E87.2 Acidosis; K31.84 Gastroparesis; E11.43 Type 2 diabetes mellitus with diabetic autonomic (poly)neuropathy; E87.5 Hyperkalemia; L97.329 Non-pressure chronic ulcer of left ankle with unspecified severity; F31.89 Other bipolar disorder; E11.65 Type 2 diabetes mellitus with hyperglycemia; C53.9 Malignant neoplasm of cervix uteri, unspecified; Z86.73 Personal history of transient ischemic attack (TIA), and cerebral infarction without residual deficits; I10 Essential (primary) hypertension; Z86.718 Personal history of other venous thrombosis and embolism; I25.10 Atherosclerotic heart disease of native coronary artery without angina pectoris; E87.6 Hypokalemia; E86.0 Dehydration; K21.9 Gastro-esophageal reflux disease without esophagitis; D64.9 Anemia, unspecified; K29.70 Gastritis, unspecified, without bleeding; L97.519 Non-pressure chronic ulcer of other part of right foot with unspecified severity
CPT/HCPCS: 36415; 36569; 71010; 74176; 76937; 80048; 80053; 80061; 81001; 81003; 82043; 82962; 83036; 83690; 83735; 84100; 84132; 85025; 88305; 88313; 93005; 96361; 96365; 96366; 96372; 96375; 96376; C9113; J1642; J1650; J1815; J2060; J2270; J2405; J2765; J3250; J3475; J3480; J7030; J7042; P9612

== ENCOUNTER 2016-10-25 18:04 | Inpatient (IN) | payer OTHER ==
[~2016-10-25] VITALS: Ht 160 cm; Wt 67.7 kg
[~2016-10-25 18:04] MED LIST changes: +CARAS PO; +DOXY100T20 PO; +FER325 PO; -IBUP-1542 PO; +LURA20TA PO; +NORT50CA PO; +OXCA300T41 PO; +PANT40TA4 PO
[2016-10-25] MEDS ORDERED: LACTATED RINGER'S 1,000 ML IV STA (20:32)
[2016-10-25] MEDS ORDERED: SOD CHLORIDE 0.9% 2,000 ML IV STA (20:32)
[2016-10-25] MEDS ORDERED: ONDANSETRON 4 MG INJ IV STA (20:37)
[2016-10-25 21:27] LABS: ADD SCAN DIFF NO
[2016-10-25 21:30] LABS: BASOPHILS % 0.2 % (0.0-2.0); HEMATOCRIT 35.8 % (37.0-47.0); HEMOGLOBIN 12.5 g/dl (12.0-16.0); LYMPHOCYTES # 1.2 10^3/ul (0.8-2.9); LYMPHOCYTES % 10.9 % (15.0-51.0); MEAN CORPUSCULAR HEMOGLOBIN 31.6 pg (29.0-33.0); MEAN CORPUSCULAR HGB CONC 34.9 g/dl (32.0-37.0); MEAN CORPUSCULAR VOLUME 90.6 fl (82.0-101.0); MONOCYTE # 0.5 10^3/ul (0.3-0.9); MONOCYTES % 4.4 % (0.0-11.0); NEUTROPHIL # 9.5 10^3/ul (1.6-7.5); NEUTROPHILS % 84.1 % (39.0-77.0); PLATELET COUNT 462 10^3/UL (140-415); RED BLOOD COUNT 3.95 10^6/ul (4.20-5.40); WHITE BLOOD COUNT 11.2 10^3/ul (4.8-10.8)
[2016-10-25 21:49] LABS: POTASSIUM 4.6 mmol/L (3.5-5.1)
[2016-10-25 21:52] LABS: CREATININE 0.68 mg/dl (0.44-1.00)
[2016-10-25 21:53] LABS: CALCIUM 9.6 mg/dl (8.4-10.2)
[2016-10-25] MEDS ORDERED: ONDANSETRON 4 MG INJ IV PRN (22:30)
[2016-10-25] MEDS ORDERED: ACETAMINOPHEN 325 MG TAB PO PRN (22:30)
[2016-10-25] MEDS ORDERED: morphine 4 MG/ML VIAL IV STA (22:55)
[2016-10-25 22:57] LABS: ADD UMIC NO; URINE BILIRUBIN (Dip) NEGATIVE (NEGATIVE); URINE BLOOD (Dip) NEGATIVE (NEGATIVE); URINE COLOR LT. YELLOW (YELLOW); URINE KETONES (Dip) TRACE (NEGATIVE); URINE LEUKOCYTE ESTERASE (Dip) NEGATIVE (NEGATIVE); URINE NITRITE (Dip) NEGATIVE (NEGATIVE); URINE TOTAL PROTEIN (Dip) NEGATIVE (NEGATIVE); URINE UROBILINOGEN (Dip) 0.2 E.U./dL (0.1-1.0)
--- NOTE | 2016-10-25 23:08 | ERA ---
ER Documentation Chief Complaint Date/Time DATE: 10/25/16 TIME: 22:56 Chief Complaint VOMITING X 2 DAYS, ON INSULIN HPI 36 yo female with history of Diabetes, CAD, HTN, CVA, LLE DVT, psych disorder, bilateral non-healing ulcer of the lower extremities and cervical Cancer presenting to the ER with intractable vomiting and upper abdominal pain. She initially presented to the ER on October 15 with 6 days history of intractable vomiting. She was discharged on October 23. During her hospital stay she had an EGD that showed severe ulcerative esophagitis. She was discharged with Protonix , Reglan, sucralfate. She states that these medications have not been helping her. She continues to vomit multiple times a day. Vomit is nonbloody and nonbilious. She denies any associated diarrhea. She is having very small bowel movements without melena or hematochezia. She endorses associated upper abdominal pain that is constant, nonradiating, aching, 10 out of 10. She has had the same symptoms for the past 2 weeks. She denies any new symptoms or fevers, chills, headache, chest pain, shortness of breath ROS All systems reviewed and are negative except as per history of present illness. Medications Home Meds Active Scripts Pantoprazole* (Pantoprazole*) 40 Mg Tablet., 40 MG PO AC BREAKFAST for 30 Days , TAB 1 Refill Prov:SHAYNA QUINTANILLA MD 10/21/16 Sucralfate* (Carafate*) 1 Gm/10 Ml Susp, 1 GM PO QID for 30 Days Prov:SHAYNA QUINTANILLA MD 10/21/16 Reported Medications Ferrous Sulfate* (Ferrous Sulfate*) 325 Mg Tabec, 325 MG PO BID, TAB 10/20/16 Doxycycline Hyclate* (Doxycycline Hyclate*) 100 Mg Tablet.dr, 100 MG PO BID, TAB 10/20/16 Nortriptyline Hcl* (Nortriptyline Hcl*) 50 Mg Capsule, 50 MG PO QHS, TAB 10/20/16 Oxcarbazepine* (Oxcarbazepine*) 300 Mg Tablet, 300 MG PO BID, TAB 10/20/16 Lurasidone Hcl (LATUDA) 20 Mg Tablet, 20 MG PO QHS, #30 TAB 10/20/16 Phenytoin* (Dilantin* Chew) 50 Mg Tab.chew, 50 MG PO BID, TAB.CHEW 04/07/16 Acetaminophen with Codeine (Acetaminophen-Cod #3 Tablet) 1 Each Tablet, 1 TAB PO Q6H for 7 Days, #30 TAB 04/07/16 Aspirin* (Aspirin* Chew) 81 Mg Tab.chew, 81 MG PO DAILY, TAB.CHEW 04/07/16 Zolpidem Tartrate* (Zolpidem Tartrate*) 10 Mg Tablet, 10 MG PO QHS Y for INSOMNIA for 30 Days, #30 TAB 11/03/15 Clonazepam* (Clonazepam*) 1 Mg Tablet, 1 MG PO BID Y for ANXIETY for 15 Days, # 30 TAB 11/03/15 Metoprolol Tartrate* (Lopressor*) 50 Mg Tab, 50 MG PO BID for 30 Days, #60 TAB 11/03/15 Atorvastatin* (Atorvastatin*) 40 Mg Tablet, 40 MG PO QHS for 30 Days, #30 TAB 11/03/15 Insulin Lispro (Humalog) 100 U/Ml Cartridge, 5 SC SLIDING SCALE ACHS, EA 07/15/14 Insulin Glargine* (Lantus*) 100 Unit/Ml Soln, 15 UNIT SC HS, EA 07/15/14 Discontinued Reported Medications Ibuprofen* (Ibuprofen*) 600 Mg Tablet, 600 MG PO Q6H for 5 Days, #12 TAB 11/03/15 Discontinued Scripts Cephalexin* (Keflex*) 500 Mg Capsule, 500 MG PO TID for 5 Days, CAP Prov:ANDREA VELEZ MD 04/07/16 Fluconazole* (Diflucan*) 150 Mg Tablet, 150 MG PO ONCE, #1 TAB Prov:ANDREA VELEZ MD 04/07/16 Ibuprofen* (Motrin*) 600 Mg Tab, 600 MG PO Q6H Y for PAIN AND OR ELEVATED TEMP, #30 TAB Prov:SENA REYES MD 08/18/16 Allergies Allergies: Coded Allergies: sulfamethoxazole (Verified Allergy, Severe, HIVES, SOB, 10/25/16) honey (Verified Allergy, Unknown, 10/25/16) Uncoded Allergies: CITRUS (Allergy, Unknown, 02/10/14) PMhx/Soc History of Surgery: Yes ( x1, TUBES TIED) Anesthesia Reaction: No Hx Neurological Disorder: Yes (Seizures, Tia) Hx Respiratory Disorders: No Hx Cardiac Disorders: Yes (hypertension) Hx Psychiatric Problems: Yes (Bipolar) Hx Miscellaneous Medical Probl: Yes (Psych disorder. DM, gastritis, cervical CA ) Hx Alcohol Use: No Hx Substance Use: No Hx Tobacco Use: No Smoking Status: Never smoker FmHx Family History: No coronary disease Physical Exam Vitals Vital Signs Date Time Temp Pulse Resp B/P Pulse Ox O2 Delivery O2 Flow Rate FiO2 10/25/16 20:40 118 17 142/107 100 Room Air 10/25/16 18:06 98.8 129 18 107/73 99 Physical Exam Const: Well-appearing, no distress, nontoxic Head: Atraumatic Eyes: Normal Conjunctiva ENT: Dry oral mucosa Neck: Full range of motion..~ No meningismus. Resp: Clear to auscultation bilaterally Cardio: Tachycardic with regular rhythm, no murmurs Abd: Soft, diffuse upper abdominal tenderness to palpation, but she is distractible. non distended. Normal bowel sounds. 2+ distal pulses Skin: No petechiae or rashes Back: No midline or flank tenderness Ext: No cyanosis, or edema Neur: Awake and alert and oriented 3, cranial nerves intact, strength and sensation is intact in all 4 extremity Psych: Normal Mood and strange affect Result Diagram: 10/25/16210610/25/162106 Results 24 hrs Laboratory Tests Test 10/25/16 20:58 10/25/16 21:07 Bedside Glucose 253mg/dL White Blood Count 11.210^3/ul Red Blood Count 3.9510^6/ul Hemoglobin 12.5g/dl Hematocrit 35.8% Mean Corpuscular Volume 90.6fl Mean Corpuscular Hemoglobin 31.6pg Mean Corpuscular Hemoglobin Concent 34.9g/dl Red Cell Distribution Width 12.0% Platelet Count 56934^3/UL Mean Platelet Volume 9.0fl Neutrophils % 84.1% Lymphocytes % 10.9% Monocytes % 4.4% Eosinophils % 0.0% Basophils % 0.2% Nucleated Red Blood Cells % 0.0/100WBC Neutrophils # 9.510^3/ul Lymphocytes # 1.210^3/ul Monocytes # 0.510^3/ul Eosinophils # 0.010^3/ul Basophils # 0.010^3/ul Nucleated Red Blood Cells # 0.010^3/ul Sodium Level 133mmol/L Potassium Level 4.6mmol/L Chloride Level 88mmol/L Carbon Dioxide Level 31mmol/L Anion Gap 19 Blood Urea Nitrogen 13mg/dl Creatinine 0.68mg/dl Glucose Level 252mg/dl Lactic Acid Level 1.4mmol/L Calcium Level 9.6mg/dl Current Medications Medications (Trade) Dose Ordered Sig/Rere Route PRN Reason Start Time Stop Time Status Last Admin Dose Admin Sodium Chloride 2,000 ml @ 1,000 mls/hr Q2H STAT IV 10/25/16 20:32 10/25/16 22:31 DC 10/25/16 21:05 Lactated Ringer's (Lr) 1,000 ml @ 1,000 mls/hr Q1H STAT IV 10/25/16 20:32 10/25/16 21:31 DC 10/25/16 21:05 Ondansetron HCl (Zofran Inj) 4 mg ONCE STAT IV 10/25/16 20:37 10/25/16 20:38 DC 10/25/16 21:12 Ondansetron HCl (Zofran Inj) 4 mg BRIDGE ORDER PRN IV NAUSEA AND/OR VOMITING 10/25/16 22:30 10/26/16 22:29 Acetaminophen (Tylenol Tab) 650 mg ER BRIDGE PRN PO MILD PAIN/FEVER 10/25/16 22:30 10/26/16 22:29 Procedures/MDM Labs: CBC shows mild leukocytosis and thrombocytosis, BMP shows hyperglycemia without evidence of DKA, hypo-natremia, hypochloremia. Lactate is within normal limits Patient is presenting with intractable vomiting, likely secondary to her recently diagnosed severe ulcerative esophagitis. There is no evidence of DKA on her workup. I have a low suspicion for acute infection, esophageal tear, or acute surgical abdomen. 2 L of IV fluids were given here. Zofran IV and morphine IV were also given. Initially she was tachycardic but her tachycardia slowly improved with hydration. However given her intractable vomiting, patient is not stable for discharge home. I spoke with Dr. Zheng on-call for Dr. Quintanilla, who asked me to admit the patient to the panel. Dr. Pak accepted the patient for admission. Departure Diagnosis: Primary Impression: Intractable vomiting Qualified Code: R11.2 - Intractable vomiting with nausea, unspecified vomiting type Additional Impressions: Abdominal pain Qualified Code: R10.10 - Pain of upper abdomen Esophagitis Condition: LUDY Rangel MD October 25, 2016 23:07
[2016-10-25 23:45] VITALS: Ht 160 cm; Wt 67.7 kg
[2016-10-26] MEDS: METOPROLOL 50 MG TAB PO SCH ×4 (00:30→21:00)
[2016-10-26] MEDS ORDERED: clonAZEPAM 0.5 MG TAB PO PRN (00:30)
[2016-10-26] MEDS ORDERED: ZOLPIDEM 5 MG TAB PO PRN (00:30)
[2016-10-26] MEDS ORDERED: SOD CHLORIDE 0.9% 500 ML IV ONE (01:00)
[2016-10-26] MEDS ORDERED: DEXTROSE 50% 50 ML SYRINGE IV PRN ×2 (01:15)
[2016-10-26] MEDS ORDERED: GLUCOSE GEL 15 GRAM TUBE PO PRN ×2 (01:15)
[2016-10-26] MEDS ORDERED: GLUCOSE GEL 15 GRAM TUBE BUCCAL PRN (01:15)
[2016-10-26] MEDS ORDERED: GLUCAGON 1 MG INJ IM PRN (01:15)
[2016-10-26] MEDS: METOCLOPRAMIDE 10 MG INJ IV PRN ×4 (01:23→23:05)
[2016-10-26] MEDS: morphine 4 MG/ML VIAL IV PRN ×3 (01:25→12:19)
[2016-10-26 01:32] VITALS: BP 181/90; PULSE 119
[2016-10-26] MEDS: DEXTROSE 5%-0.45% NACL 1,000 ML IV SCH ×4 (01:32→23:06)
[2016-10-26 06:10] VITALS: BP 133/83; PULSE 103
[2016-10-26] MEDS: PANTOPRAZOLE 40 MG INJ IV SCH (06:19)
[2016-10-26] MEDS: ONDANSETRON 4 MG INJ IV PRN ×2 (06:19→12:18)
[2016-10-26] MEDS: INSULIN ASPART [NOVOLOG] 3 ML PEN SC SCH ×4 (06:24→23:15)
--- NOTE | 2016-10-26 06:35 | HP ---
DATE OF ADMISSION: 10/25/2016 CHIEF COMPLAINT: Vomiting. HISTORY OF PRESENT ILLNESS: The patient is a 36-year-old female with a history of diabetes, CAD, hy pertension, CVA, left lower extremity deep venous thrombosis, psych disorder, bilateral nonhealing u lcer of the lower extremities, and cervical cancer who presents to the emergency department with com plaint of vomiting and abdominal pain. She was actually admitted by myself less than [address] she presented with 6 day history of intractable vomiting. When I initially saw her at that time in the ER, she looked very uncomfortable, and she was actually vomiting. At that time, she also to ld me that she was recently diagnosed with cervical cancer but she had not started treatment. Trevon snow last hospitalization, the patient underwent an EGD which showed gastritis and severe ulcerated eso phagitis. She was placed on combination medications and was discharged after her symptoms improved. Also, at that time, the patient did present with mild DKA. The patient now comes back with recurr ence of her intractable vomiting as well as abdominal pain which is diffuse. She said the medicatio n that was given to her at discharge was not helping, and looking back, she was discharged on Proton ix, Reglan, as well as Carafate. When she presented to the ER, she was tachycardic with heart rate of 129. Otherwise, the rest of he r vitals were stable. Labs show a WBC of 11.2. Sodium 133, chloride 88, glucose 252. She was give n IV fluids and antiemetics and is currently admitted for evaluation. REVIEW OF SYSTEMS: A 12-point review of systems was performed and negative except as mentioned in t he HPI. PAST MEDICAL HISTORY: As per HPI. PAST SURGICAL HISTORY: Tubal ligation, . ALLERGIES: 1. CITRUS. 2. HONEY. 3. SULFAMETHOXAZOLE. HOME MEDICATIONS: 1. Ferrous sulfate. 2. Lipitor. 3. Lopressor. 4. Tylenol. 5. Aspirin. 6. Clonazepam. 7. Latuda. 8. Nortriptyline. 9. Oxcarbazepine. 10. Phenytoin. 11. Zolpidem. 12. Protonix. 13. Carafate. 14. Insulin. PHYSICAL EXAMINATION: VITAL SIGNS: Blood pressure 156/106, heart rate 117, respiratory rate 16, temperature 98.8, oxygen saturation 100% on 2 liters. GENERAL: No acute distress. Alert and oriented. HEENT: No obvious head deformity. Pupils reactive to light. Extraocular muscles intact. CARDIOVASCULAR: Tachycardic with regular rhythm. LUNGS: Clear. ABDOMEN: Soft. There is tenderness diffusely to deep palpation with no guarding. EXTREMITIES: Bilateral lower extremities at the ankle and foot area covered with dressing. LABORATORY DATA: Pertinent positives as mentioned in the HPI. IMPRESSION: 1. Intractable nausea and vomiting. 2. Recently diagnosed severe ulcerative esophagitis. 3. History of CVA. 4. History of hypertension. 5. History of left lower extremity deep venous thrombosis. 6. Bilateral lower extremity chronic ulcers. The patient follows up at [facility] 7. History of recently diagnosed cervical cancer. 8. Mild hyponatremia. 9. Mild leukocytosis. PLAN: We will admit for observation. She will be placed on antiemetics. She will be placed on Pro tonix. Her intractable vomiting could be a manifestation of gastritis and severely ulcerated esopha gitis. If her symptoms improve quickly, then we will questions whether or not the patient has been compliant with her medications. We will continue her home medications including her insulin with ad justment as needed. We will mainly provide pain medication and antiemetics, and if her intractable vomiting continues, we will reconsult GI. Further workup and management per clinical course. Dictated By: BEE AGUILAR/MELISSA Conf#: [id number] DID#: [id number]
[2016-10-26 07:45] VITALS: BP 157/102; RESP 18
[2016-10-26] MEDS ORDERED: INSULIN GLARGINE [LANtus] 3 ML PEN SC SCH (08:00)
[2016-10-26] MEDS: PHENYTOIN (25 MG/ML PO SYG) PO SCH ×2 (09:00→21:00)
[2016-10-26] MEDS: SUCRALFATE (100 MG/ML) 10ML CUP PO SCH ×4 (09:00→21:00)
[2016-10-26] MEDS: OXCARBAZEPINE 300 MG TAB PO SCH ×2 (09:00→21:00)
--- NOTE | 2016-10-26 16:02 | PN ---
DATE: 10/26/2016 SUBJECTIVE: The patient had some nausea symptoms this morning. OBJECTIVE: VITAL SIGNS: The patient's heart rate is 100 to 123. The rest of the vital signs are stable. GENERAL: The patient is lying in bed, no acute distress. HEENT: Pupils equal, round, react to light. Extraocular muscles intact. NECK: Supple, no thyromegaly. LUNGS: Clear to auscultation bilaterally. CARDIOVASCULAR: S1, S2 heard. No rubs or gallops. ABDOMEN: Soft, nontender, nondistended. Normal bowel sounds. No rebound or guarding. MUSCULOSKELETAL: No lower extremity edema bilaterally. NEUROLOGIC: No focal deficits. LABORATORY DATA: There are no new labs from this morning. ASSESSMENT AND PLAN: This is a 36-year-old female with history of diabetes, coronary artery disease , hypertension, prior stroke, deep venous thrombosis, psychiatric disorder, bilateral nonhealing ulc ers of the lower extremities, cervical cancer, who presents with uncontrollable nausea and vomiting symptoms. 1. Nausea and vomiting, unclear source. She does have a recently diagnosed history of severe ulcer ative esophagitis. Again, continue antiemetic medications. Monitor for now. Continue IV fluids. Keep patient n.p.o. The patient may need a speech evaluation as well. 2. Severe ulcerative esophagitis. Again, continue Carafate for now and Protonix. Monitor. Pain c ontrol medications as well. 3. History of hypertension. Continue current blood pressure medications. Blood pressure is stable . 4. History of deep venous thrombosis. Continue to monitor for now. 5. History of prior stroke. No present issues. Continue to monitor for now. 6. History of psychiatric disorder. Again, continue Dilantin, nortriptyline and clonazepam. 7. History of high cholesterol. Continue Lipitor. 8. History of bilateral nonhealing ulcers of the lower extremities. Consider wound care consult as necessary. Continue to monitor for now. 9. Gastrointestinal prophylaxis, proton pump inhibitor. 10. Deep venous thrombosis prophylaxis. She is on heparin subcutaneous. 11. History of recent diagnosis of cervical cancer. Continue to monitor for now. 12. History of diabetes. Continue Lantus and sliding scale insulin. Dictated By: OLY DAWN Conf#: [id number] DID#: [id number]
[2016-10-26] MEDS: ONDANSETRON INJ 8 MG in SOD CHLORIDE 0.9% 50 ML IV PRN (17:31)
[2016-10-26] MEDS ORDERED: ONDANSETRON 4 MG INJ IV PRN (19:00)
[2016-10-26] MEDS ORDERED: ONDANSETRON 4 MG INJ IV STA (20:04)
[2016-10-26] MEDS: INSULIN GLARGINE [LANtus] 3 ML PEN SC SCH (20:23)
[2016-10-26 20:26] VITALS: BP 135/86; RESP 19
[2016-10-26] MEDS ORDERED: LORAZEPAM 2 MG INJ IV PRN (20:30)
[2016-10-26] MEDS: ATORVASTATIN 40 MG TAB PO SCH (21:00)
[2016-10-26] MEDS ORDERED: NON-FORMULARY/PATIENT OWN MED (Lurasidone Hcl (Latuda) 20 MG) PO SCH (21:00)
[2016-10-26] MEDS: NORTRIPTYLINE 25 MG CAP PO SCH (21:00)
[2016-10-27] MEDS: DEXTROSE 5%-0.45% NACL 1,000 ML IV SCH ×3 (01:00→17:00)
[2016-10-27] MEDS: ONDANSETRON INJ 8 MG in SOD CHLORIDE 0.9% 50 ML IV PRN ×2 (01:05→11:00)
[2016-10-27] MEDS: LORAZEPAM 2 MG INJ IV PRN ×4 (01:07→20:43)
[2016-10-27 05:10] LABS: ADD SCAN DIFF NO
[2016-10-27 05:17] LABS: BASOPHILS % 0.3 % (0.0-2.0); EOSINOPHILS % 0.3 % (0.0-7.0); HEMOGLOBIN 10.7 g/dl (12.0-16.0); LYMPHOCYTES # 1.8 10^3/ul (0.8-2.9); LYMPHOCYTES % 23.5 % (15.0-51.0); MEAN CORPUSCULAR HEMOGLOBIN 31.9 pg (29.0-33.0); MEAN CORPUSCULAR HGB CONC 35.7 g/dl (32.0-37.0); MEAN CORPUSCULAR VOLUME 89.6 fl (82.0-101.0); MEAN PLATELET VOLUME 8.7 fl (7.4-10.4); MONOCYTE # 0.4 10^3/ul (0.3-0.9); MONOCYTES % 5.8 % (0.0-11.0); NEUTROPHIL # 5.2 10^3/ul (1.6-7.5); NEUTROPHILS % 69.8 % (39.0-77.0); PLATELET COUNT 412 10^3/UL (140-415); RED BLOOD COUNT 3.35 10^6/ul (4.20-5.40); RED CELL DISTRIBUTION WIDTH 11.9 % (11.5-14.5); WHITE BLOOD COUNT 7.4 10^3/ul (4.8-10.8)
[2016-10-27 05:40] LABS: POTASSIUM 3.3 mmol/L (3.5-5.1)
[2016-10-27 05:42] LABS: CREATININE 0.61 mg/dl (0.44-1.00)
[2016-10-27 05:43] LABS: CALCIUM 8.5 mg/dl (8.4-10.2)
[2016-10-27] MEDS: PANTOPRAZOLE 40 MG INJ IV SCH (06:22)
[2016-10-27] MEDS: METOCLOPRAMIDE 10 MG INJ IV PRN ×2 (06:22→17:36)
[2016-10-27] MEDS: INSULIN ASPART [NOVOLOG] 3 ML PEN SC SCH ×4 (06:30→21:00)
[2016-10-27 07:45] VITALS: BP 110/56; RESP 20
[2016-10-27] MEDS: SUCRALFATE (100 MG/ML) 10ML CUP PO SCH ×4 (09:00→21:16)
[2016-10-27] MEDS: METOPROLOL 50 MG TAB PO SCH ×2 (09:00→21:00)
[2016-10-27] MEDS: OXCARBAZEPINE 300 MG TAB PO SCH ×2 (09:00→21:16)
[2016-10-27] MEDS: morphine 4 MG/ML VIAL IV PRN ×3 (09:19→23:16)
[2016-10-27] MEDS: PHENYTOIN (25 MG/ML PO SYG) PO SCH ×2 (09:27→21:16)
--- NOTE | 2016-10-27 15:26 | PN ---
Date/Time of Note Date/Time of Note DATE: 10/27/16 TIME: 15:24 Assessment/Plan VTE Prophylaxis VTE Prophylaxis Intervention: heparin Lines/Catheters IV C[facility]ter Type (from [facility] Peripheral IV Urinary Cath still in place: No Assessment/Plan Chief Complaint/Hosp Course ASSESSMENT AND PLAN: 36-year-old female with history of diabetes, coronary artery disease, hypertension, prior stroke, deep venous thrombosis, psychiatric disorder, bilateral nonhealing ulcers of the lower extremities, cervical cancer , who presents with uncontrollable nausea and vomiting symptoms. 1. Nausea and vomiting, unclear source. She does have a recently diagnosed history of severe ulcerative esophagitis. Again, continue antiemetic medications. Monitor for now. Continue IV fluids. Keep patient n.p.o. The patient may need a speech evaluation as well. 2. Severe ulcerative esophagitis. switch to liquid Carafate, continue Protonix. Monitor. Pain control medications as well. Get GI re-consult. 3. History of hypertension. Continue current blood pressure medications. Blood pressure is stable. 4. History of deep venous thrombosis. Continue to monitor for now. 5. History of prior stroke. No present issues. Continue to monitor for now. 6. History of psychiatric disorder. Again, continue nortriptyline and clonazepam. 7. History of high cholesterol. Continue Lipitor. 8. History of bilateral nonhealing ulcers of the lower extremities. Consider wound care consult as necessary. Continue to monitor for now. 9. Gastrointestinal prophylaxis, proton pump inhibitor. 10. Deep venous thrombosis prophylaxis. She is on heparin subcutaneous. 11. History of recent diagnosis of cervical cancer. Continue to monitor for now. 12. History of diabetes. Continue Lantus and sliding scale insulin. 13. Seizures - switch to liquid dilantin, ativan prn Problems: Subjective 24 Hr Interval Summary Free Text/Dictation Pt refused ST eval x 2. States she still has difficulty swallowing meds. Exam/Review of Systems Vital Signs Vitals Vital Signs Date Time Temp Pulse Resp B/P Pulse Ox O2 Delivery O2 Flow Rate FiO2 10/27/16 07:45 97.8 72 20 110/56 96 10/26/16 20:20 2.0 10/25/16 23:05 Nasal Cannula Intake and Output 10/26/16 10/26/16 10/27/16 15:00 23:00 07:00 Intake Total 563 ml 1054 ml 804 ml Balance 563 ml 1054 ml 804 ml Exam GENERAL: The patient is lying in bed, no acute distress. HEENT: Pupils equal, round, react to light. Extraocular muscles intact. NECK: Supple, no thyromegaly. LUNGS: Clear to auscultation bilaterally. CARDIOVASCULAR: S1, S2 heard. No rubs or gallops. ABDOMEN: Soft, nontender, nondistended. Normal bowel sounds. No rebound or guarding. MUSCULOSKELETAL: No lower extremity edema bilaterally. NEUROLOGIC: No focal deficits. Results Result Diagram: 10/27/16 0425 10/27/16 0425 Results 24 hrs Laboratory Tests Test 10/26/16 16:52 10/26/16 20:18 10/26/16 23:12 10/27/16 04:25 Bedside Glucose 230 H 196 203 White Blood Count 7.4 # Red Blood Count 3.35 L Hemoglobin 10.7 L Hematocrit 30.0 L Mean Corpuscular Volume 89.6 Mean Corpuscular Hemoglobin 31.9 Mean Corpuscular Hemoglobin Concent 35.7 Red Cell Distribution Width 11.9 Platelet Count 412 Mean Platelet Volume 8.7 Neutrophils % 69.8 Lymphocytes % 23.5 Monocytes % 5.8 Eosinophils % 0.3 Basophils % 0.3 Nucleated Red Blood Cells % 0.0 Neutrophils # 5.2 Lymphocytes # 1.8 Monocytes # 0.4 Eosinophils # 0.0 Basophils # 0.0 Nucleated Red Blood Cells # 0.0 Sodium Level 134 L Potassium Level 3.3 L Chloride Level 97 Carbon Dioxide Level 28 Anion Gap 12 # Blood Urea Nitrogen 6 L Creatinine 0.61 Glucose Level 251 H Calcium Level 8.5 Test 10/27/16 06:27 10/27/16 12:44 Bedside Glucose 267 H 165 Medications Medications Current Medications Atorvastatin Calcium (Lipitor) 40 mg QHS PO ; Start 10/26/16 at 21:00 Clonazepam (Klonopin) 1 mg BID PRN PO ANXIETY; Start 10/26/16 at 00:30 Metoprolol Tartrate (Lopressor) 50 mg BID PO ; Start 10/26/16 at 00:30 Nortriptyline HCl (Aventyl) 50 mg QHS PO ; Start 10/26/16 at 21:00 Oxcarbazepine (Trileptal) 300 mg BID PO ; Start 10/26/16 at 09:00 Phenytoin (Dilantin Susp (Ped)) 50 mg BID PO Last administered on 10/27/16 09: 27; Admin Dose 50 MG; Start 10/26/16 at 09:00 Sucralfate (Carafate Susp) 1 gm QID PO ; Start 10/26/16 at 09:00 Zolpidem Tartrate (Ambien) 10 mg QHS PRN PO INSOMNIA; Start 10/26/16 at 00:30 Miscellaneous Information 20 mg 20 mg QHS PO ; Start 10/26/16 at 21:00; Status UNV Dextrose/Sodium Chloride (D5-1/2ns) 1,000 ml @ 125 mls/hr Q8H IV Last administered on 10/27/16 09:19; Admin Dose 125 MLS/HR; Start 10/26/16 at 01:00 Pantoprazole (Protonix Iv) 40 mg DAILY@06 IV Last administered on 10/27/16 06: 22; Admin Dose 40 MG; Start 10/26/16 at 06:00 Morphine Sulfate (morphine) 3 mg Q4H PRN IV PAIN Last administered on 14:58; Admin Dose 3 MG; Start 10/26/16 at 01:00 Metoclopramide HCl (Reglan) 10 mg Q6H PRN IV VOMITTING Last administered on 06:22; Admin Dose 10 MG; Start 10/26/16 at 01:00 Miscellaneous Information 1 ea NOTE XX ; Start 10/26/16 at 01:15 Glucose (Glutose) 15 gm Q15M PRN PO DECREASED GLUCOSE; Start 10/26/16 at 01:15 Glucose (Glutose) 22.5 gm Q15M PRN PO DECREASED GLUCOSE; Start 10/26/16 at 01: 15 Dextrose (D50w Syringe) 25 ml Q15M PRN IV DECREASED GLUCOSE; Start 10/26/16 at 01:15 Dextrose (D50w Syringe) 50 ml Q15M PRN IV DECREASED GLUCOSE; Start 10/26/16 at 01:15 Glucagon (Glucagen) 1 mg Q15M PRN IM DECREASED GLUCOSE; Start 10/26/16 at 01:15 Glucose (Glutose) 15 gm Q15M PRN BUCCAL DECREASED GLUCOSE; Start 10/26/16 at 01 :15 Miscellaneous Information MEDICATION REQUIRES CLARIFICATION: Q8H XX ; Start 10/26/16 at 09:00 Ondansetron HCl/ Sodium Chloride (Zofran Inj/NS) 54 ml @ 216 mls/hr Q6H PRN IV NAUSEA AND/OR VOMITING Last administered on 10/27/16 11:00; Admin Dose 216 MLS/HR; Start 10/26/16 at 15:41 Insulin Glargine (Lantus) 12 unit HS SC Last administered on 10/26/16 20:23; Admin Dose 12 UNIT; Start 10/26/16 at 21:00 Lorazepam (Ativan) 1 mg Q4H PRN IV NAUSEA Last administered on 10/27/16 12:13 ; Admin Dose 1 MG; Start 10/27/16 at 01:00 Insulin Aspart NOVOLOG *MODERATE* ALGORI... Q4 SC Last administered on 12:47; Admin Dose 2 UNIT; Start 10/27/16 at 13:00 Potassium Chloride (KCl 40 MEQ/250 ML NS) 250 ml @ 62.5 mls/hr ONCE ONCE IVPB ; Start 10/27/16 at 16:00; Stop 10/27/16 at 19:59 OLY HILLMAN October 27, 2016 15:26
[2016-10-27] MEDS ORDERED: POTASSIUM CHLORIDE 250 ML IVPB ONE (16:00)
--- NOTE | 2016-10-27 17:38 | CONS ---
Date/Time of Note Date/Time of Note DATE: 10/27/16 TIME: 17:17 Assessment/Plan Assessment/Plan Additional Assessment/Plan Assessment ; severe ulcerative esophagitis Gastritis. Diabetes, CAD, Hypertension, CVA, left lower extremity deep venous thrombosis, psych disorder, bilateral nonhealing ulcer of the lower extremities, cervical cancer Plan: Protonix 40 mg twice daily Reglan 10 mg 4 times daily Dissolve Carafate 1 g 4 times daily Advance diet as tolerated Consultation Date/Type/Reason Admit Date/Time October 25, 2016 at 22:18 Date of Consultation: October 27, 2016 Reason for Consultation Nausea and vomiting Hx of Present Illness 36-year-old female with multiple comorbidities including psychiatric issues. The patient was recently hospitalized with nausea and vomiting as well as diabetes mellitus [id number] a mild DKA. During her evaluation endoscopy was performed and we found severe erosive/ulcerated esophagitis and moderate gastritis. The patient was treated with PPI double dose, Reglan 10 mg 4 times daily and Carafate 1 g 4 times daily liquid. The patient improved significantly with this regimen and was eventually discharged presumably on that regimen. She is hospitalized now approximately 6 days after her previous discharge recurrence of the same symptoms with persistent nausea and vomiting now lasting 3 days. There has been no hematemesis, melena or hematochezia. And specifically questioning the patient she stated that she was taking Protonix once a day, Reglan once a day and was never able to take Carafate as she did not receive liquid form and she could not swallow the large Carafate. Clearly the poor compliance is responsible for recurrence of symptoms and at this point I would recommend reinstating therapy with Protonix 40 mg twice daily , Reglan 10 mg 4 times daily and Carafate dissolved 1 g 4 times daily Constitutional: improved, no complaints Eyes: no complaints ENT: no complaints Respiratory: no complaints Cardiovascular: no complaints Gastrointestinal: decreased appetite, nausea, pain, vomiting Genitourinary: no complaints Musculoskeletal: no complaints Skin: no complaints Neurologic: no complaints Endocrine: no complaints Lymphatic: no complaints Psychological: nl mood/affect, no complaints Immunologic: no complaints Past Medical History diabetes, CAD, hypertension, CVA, left lower extremity deep venous thrombosis, psych disorder, bilateral nonhealing ulcer of the lower extremities, and cervical cancer Family History Significant Family History: no pertinent family hx Social History Alcohol Use: none Smoking Status: Never smoker Drug Use: none Exam/Review of Systems Vital Signs Vitals Vital Signs Date Time Temp Pulse Resp B/P Pulse Ox O2 Delivery O2 Flow Rate FiO2 10/27/16 07:45 97.8 72 20 110/56 96 10/26/16 20:20 2.0 10/25/16 23:05 Nasal Cannula Intake and Output 10/26/16 10/26/16 10/27/16 15:00 23:00 07:00 Intake Total 563 ml 1054 ml 804 ml Balance 563 ml 1054 ml 804 ml Exam Constitutional: alert, oriented, well developed Psych: nl mood/affect, no complaints Head: atraumatic, normocephalic Eyes: EOMI, PERRL, nl conjunctiva, nl lids, nl sclera ENMT: nl external ears & nose, nl lips & teeth, nl nasal mucosa & septum Neck: non-tender, supple Respiratory: clear to auscultation, normal air movement Cardiovascular: nl pulses, regular rate and rhythm Gastrointestinal: nl liver, spleen, soft, tender (Epigastrium) Musculoskeletal: nl extremities to inspection, nl gait and stance Extremities: normal pulses Neurological: LOAN MANAGER II-XII intact, nl mental status, nl speech, nl strength Skin: nl turgor, No rash or lesions Lymph: nl lymph nodes Results Result Diagram: 10/27/1642410/27/16424 Results 24 hrs Laboratory Tests Test 10/26/16 20:18 10/26/16 23:12 10/27/16 04:25 10/27/16 06:27 Bedside Glucose 196 203 267 H White Blood Count 7.4 # Red Blood Count 3.35 L Hemoglobin 10.7 L Hematocrit 30.0 L Mean Corpuscular Volume 89.6 Mean Corpuscular Hemoglobin 31.9 Mean Corpuscular Hemoglobin Concent 35.7 Red Cell Distribution Width 11.9 Platelet Count 412 Mean Platelet Volume 8.7 Neutrophils % 69.8 Lymphocytes % 23.5 Monocytes % 5.8 Eosinophils % 0.3 Basophils % 0.3 Nucleated Red Blood Cells % 0.0 Neutrophils # 5.2 Lymphocytes # 1.8 Monocytes # 0.4 Eosinophils # 0.0 Basophils # 0.0 Nucleated Red Blood Cells # 0.0 Sodium Level 134 L Potassium Level 3.3 L Chloride Level 97 Carbon Dioxide Level 28 Anion Gap 12 # Blood Urea Nitrogen 6 L Creatinine 0.61 Glucose Level 251 H Calcium Level 8.5 Test 10/27/16 12:44 Bedside Glucose 165 Medications Medications Current Medications Atorvastatin Calcium (Lipitor) 40 mg QHS PO ; Start 10/26/16 at 21:00 Clonazepam (Klonopin) 1 mg BID PRN PO ANXIETY; Start 10/26/16 at 00:30 Metoprolol Tartrate (Lopressor) 50 mg BID PO ; Start 10/26/16 at 00:30 Nortriptyline HCl (Aventyl) 50 mg QHS PO ; Start 10/26/16 at 21:00 Oxcarbazepine (Trileptal) 300 mg BID PO ; Start 10/26/16 at 09:00 Phenytoin (Dilantin Susp (Ped)) 50 mg BID PO Last administered on 10/27/16 09: 27; Admin Dose 50 MG; Start 10/26/16 at 09:00 Sucralfate (Carafate Susp) 1 gm QID PO ; Start 10/26/16 at 09:00 Zolpidem Tartrate (Ambien) 10 mg QHS PRN PO INSOMNIA; Start 10/26/16 at 00:30 Miscellaneous Information 20 mg 20 mg QHS PO ; Start 10/26/16 at 21:00; Status UNV Dextrose/Sodium Chloride (D5-1/2ns) 1,000 ml @ 125 mls/hr Q8H IV Last administered on 10/27/16 09:19; Admin Dose 125 MLS/HR; Start 10/26/16 at 01:00 Pantoprazole (Protonix Iv) 40 mg DAILY@06 IV Last administered on 10/27/16 06: 22; Admin Dose 40 MG; Start 10/26/16 at 06:00 Morphine Sulfate (morphine) 3 mg Q4H PRN IV PAIN Last administered on 14:58; Admin Dose 3 MG; Start 10/26/16 at 01:00 Metoclopramide HCl (Reglan) 10 mg Q6H PRN IV VOMITTING Last administered on 06:22; Admin Dose 10 MG; Start 10/26/16 at 01:00 Miscellaneous Information 1 ea NOTE XX ; Start 10/26/16 at 01:15 Glucose (Glutose) 15 gm Q15M PRN PO DECREASED GLUCOSE; Start 10/26/16 at 01:15 Glucose (Glutose) 22.5 gm Q15M PRN PO DECREASED GLUCOSE; Start 10/26/16 at 01: 15 Dextrose (D50w Syringe) 25 ml Q15M PRN IV DECREASED GLUCOSE; Start 10/26/16 at 01:15 Dextrose (D50w Syringe) 50 ml Q15M PRN IV DECREASED GLUCOSE; Start 10/26/16 at 01:15 Glucagon (Glucagen) 1 mg Q15M PRN IM DECREASED GLUCOSE; Start 10/26/16 at 01:15 Glucose (Glutose) 15 gm Q15M PRN BUCCAL DECREASED GLUCOSE; Start 10/26/16 at 01 :15 Miscellaneous Information MEDICATION REQUIRES CLARIFICATION: Q8H XX ; Start 10/26/16 at 09:00 Ondansetron HCl/ Sodium Chloride (Zofran Inj/NS) 54 ml @ 216 mls/hr Q6H PRN IV NAUSEA AND/OR VOMITING Last administered on 10/27/16 11:00; Admin Dose 216 MLS/HR; Start 10/26/16 at 15:41 Insulin Glargine (Lantus) 12 unit HS SC Last administered on 10/26/16 20:23; Admin Dose 12 UNIT; Start 10/26/16 at 21:00 Lorazepam (Ativan) 1 mg Q4H PRN IV NAUSEA Last administered on 10/27/16 16:28 ; Admin Dose 1 MG; Start 10/27/16 at 01:00 Insulin Aspart NOVOLOG *MODERATE* ALGORI... Q4 SC Last administered on 12:47; Admin Dose 2 UNIT; Start 10/27/16 at 13:00 Potassium Chloride (KCl 40 MEQ/250 ML NS) 250 ml @ 62.5 mls/hr ONCE ONCE IVPB Last administered on 10/27/16 16:28; Admin Dose 62.5 MLS/HR; Start 10/27/16 at 16:00; Stop 10/27/16 at 19:59 YANG IFORE MD October 27, 2016 17:34
[2016-10-27 20:08] VITALS: BP 92/57; RESP 18
[2016-10-27] MEDS: ATORVASTATIN 40 MG TAB PO SCH (21:15)
[2016-10-27] MEDS: NORTRIPTYLINE 25 MG CAP PO SCH (21:18)
[2016-10-27] MEDS: INSULIN GLARGINE [LANtus] 3 ML PEN SC SCH (21:26)
[2016-10-28] MEDS: DEXTROSE 5%-0.45% NACL 1,000 ML IV SCH ×4 (00:08→12:54)
[2016-10-28] MEDS: METOCLOPRAMIDE 10 MG INJ IV SCH ×4 (01:08→17:30)
[2016-10-28] MEDS: INSULIN ASPART [NOVOLOG] 3 ML PEN SC SCH ×5 (01:18→13:00)
[2016-10-28] MEDS: PANTOPRAZOLE 40 MG INJ IV SCH ×2 (06:00→11:34)
[2016-10-28] MEDS: PHENYTOIN (25 MG/ML PO SYG) PO SCH ×3 (09:00→20:43)
[2016-10-28] MEDS: METOPROLOL 50 MG TAB PO SCH ×2 (09:00→20:55)
[2016-10-28] MEDS: SUCRALFATE (100 MG/ML) 10ML CUP PO SCH ×4 (09:00→20:52)
[2016-10-28] MEDS: OXCARBAZEPINE 300 MG TAB PO SCH ×2 (09:00→20:54)
--- NOTE | 2016-10-28 10:09 | CONS ---
Date/Time of Note Date/Time of Note DATE: 10/28/16 TIME: 10:04 Assessment/Plan Assessment/Plan Additional Assessment/Plan Severe ulcerative esophagitis Gastritis Diabetes CAD Hypertension CVA left lower extremity deep venous thrombosis Bipolar disorder Bilateral nonhealing ulcer of the lower extremities Cervical cancer Plan: Protonix 40 mg twice daily Reglan 10 mg 4 times daily Dissolve Carafate 1 g 4 times daily Advance diet as tolerated Further recommendations depend on clinical course Pt seen in collaboration with Dr. Chapman Consultation Date/Type/Reason Admit Date/Time October 25, 2016 at 22:18 Initial Consult Date 10/27/16 Type of Consultation: GI 24 HR Interval Summary Free Text/Dictation Pt refusing all meds and refusing to answer questions Unable to reach father to discuss Exam/Review of Systems Vital Signs Vitals Vital Signs Date Time Temp Pulse Resp B/P Pulse Ox O2 Delivery O2 Flow Rate FiO2 10/27/16 20:08 98.0 93 18 92/57 97 10/26/16 20:20 2.0 10/25/16 23:05 Nasal Cannula Intake and Output 10/27/16 10/27/16 10/28/16 15:00 23:00 07:00 Intake Total 304 ml 650 ml 1780 ml Balance 304 ml 650 ml 1780 ml Exam Constitutional: alert, oriented, well developed, agitated Psych: agitated, uncooperative Results Result Diagram: 10/27/16 0425 10/27/16 0425 Results 24 hrs Laboratory Tests Test 10/27/16 12:44 10/27/16 17:21 10/27/16 20:37 10/28/16 01:14 Bedside Glucose 165 172 118 149 Test 10/28/16 05:10 Bedside Glucose 128 Medications Medications Current Medications Atorvastatin Calcium (Lipitor) 40 mg QHS PO Last administered on 10/27/16 21: 15; Admin Dose 40 MG; Start 10/26/16 at 21:00 Clonazepam (Klonopin) 1 mg BID PRN PO ANXIETY; Start 10/26/16 at 00:30 Metoprolol Tartrate (Lopressor) 50 mg BID PO ; Start 10/26/16 at 00:30 Nortriptyline HCl (Aventyl) 50 mg QHS PO Last administered on 10/27/16 21:18; Admin Dose 50 MG; Start 10/26/16 at 21:00 Oxcarbazepine (Trileptal) 300 mg BID PO Last administered on 10/27/16 21:16; Admin Dose 300 MG; Start 10/26/16 at 09:00 Phenytoin (Dilantin Susp (Ped)) 50 mg BID PO Last administered on 10/27/16 21: 16; Admin Dose 50 MG; Start 10/26/16 at 09:00 Sucralfate (Carafate Susp) 1 gm QID PO Last administered on 10/27/16 21:16; Admin Dose 1 GM; Start 10/26/16 at 09:00 Zolpidem Tartrate (Ambien) 10 mg QHS PRN PO INSOMNIA; Start 10/26/16 at 00:30 Miscellaneous Information 20 mg 20 mg QHS PO ; Start 10/26/16 at 21:00; Status UNV Dextrose/Sodium Chloride (D5-1/2ns) 1,000 ml @ 125 mls/hr Q8H IV Last administered on 10/28/16 00:08; Admin Dose 125 MLS/HR; Start 10/26/16 at 01:00 Pantoprazole (Protonix Iv) 40 mg DAILY@06 IV Last administered on 10/27/16 06: 22; Admin Dose 40 MG; Start 10/26/16 at 06:00 Morphine Sulfate (morphine) 3 mg Q4H PRN IV PAIN Last administered on 23:16; Admin Dose 3 MG; Start 10/26/16 at 01:00 Miscellaneous Information 1 ea NOTE XX ; Start 10/26/16 at 01:15 Glucose (Glutose) 15 gm Q15M PRN PO DECREASED GLUCOSE; Start 10/26/16 at 01:15 Glucose (Glutose) 22.5 gm Q15M PRN PO DECREASED GLUCOSE; Start 10/26/16 at 01: 15 Dextrose (D50w Syringe) 25 ml Q15M PRN IV DECREASED GLUCOSE; Start 10/26/16 at 01:15 Dextrose (D50w Syringe) 50 ml Q15M PRN IV DECREASED GLUCOSE; Start 10/26/16 at 01:15 Glucagon (Glucagen) 1 mg Q15M PRN IM DECREASED GLUCOSE; Start 10/26/16 at 01:15 Glucose (Glutose) 15 gm Q15M PRN BUCCAL DECREASED GLUCOSE; Start 10/26/16 at 01 :15 Miscellaneous Information MEDICATION REQUIRES CLARIFICATION: Q8H XX ; Start 10/26/16 at 09:00 Ondansetron HCl/ Sodium Chloride (Zofran Inj/NS) 54 ml @ 216 mls/hr Q6H PRN IV NAUSEA AND/OR VOMITING Last administered on 10/27/16 11:00; Admin Dose 216 MLS/HR; Start 10/26/16 at 15:41 Insulin Glargine (Lantus) 12 unit HS SC Last administered on 10/27/16 21:26; Admin Dose 12 UNIT; Start 10/26/16 at 21:00 Lorazepam (Ativan) 1 mg Q4H PRN IV NAUSEA Last administered on 10/27/16 20:43 ; Admin Dose 1 MG; Start 10/27/16 at 01:00 Insulin Aspart (Novolog Insulin Pen) NOVOLOG *MODERATE* ALGORI... Q4 SC Last administered on 10/28/16 01:18; Admin Dose 2 UNIT; Start 10/27/16 at 13:00 Metoclopramide HCl (Reglan) 10 mg Q6H IV Last administered on 10/28/16 01:08; Admin Dose 10 MG; Start 10/28/16 at 00:00 PANTERA BARTLETT October 28, 2016 10:09
[2016-10-28 11:10] VITALS: BP 112/66; PULSE 98; RESP 16
[2016-10-28] MEDS: LORAZEPAM 2 MG INJ IV PRN ×3 (11:25→21:38)
--- NOTE | 2016-10-28 12:45 | PN ---
Date/Time of Note Date/Time of Note DATE: 10/28/16 TIME: 12:43 Assessment/Plan VTE Prophylaxis VTE Prophylaxis Intervention: heparin Lines/Catheters [facility] [place] Urinary Cath still in place: No Assessment/Plan Chief Complaint/Hosp Course ASSESSMENT AND PLAN: 36-year-old female with history of diabetes, coronary artery disease, hypertension, prior stroke, deep venous thrombosis, psychiatric disorder, bilateral nonhealing ulcers of the lower extremities, cervical cancer , who presents with uncontrollable nausea and vomiting symptoms. 1. Nausea and vomiting, unclear source. She does have a recently diagnosed history of severe ulcerative esophagitis. - Again, continue antiemetic medications, PPI, reglan, carafate - Monitor for now. Continue IV fluids. - Keep patient n.p.o. - f/u GI rec's - The patient may need a speech evaluation as well. 2. Severe ulcerative esophagitis. switch to liquid Carafate, continue Protonix. Monitor. Pain control medications as well. Get GI re-consult. 3. History of hypertension. Continue current blood pressure medications. Blood pressure is stable. 4. History of deep venous thrombosis. Continue to monitor for now. 5. History of prior stroke. No present issues. Continue to monitor for now. 6. History of psychiatric disorder. Again, continue nortriptyline and clonazepam. 7. History of high cholesterol. Continue Lipitor. 8. History of bilateral nonhealing ulcers of the lower extremities. Consider wound care consult as necessary. Continue to monitor for now. 9. Gastrointestinal prophylaxis, proton pump inhibitor. 10. Deep venous thrombosis prophylaxis. She is on heparin subcutaneous. 11. History of recent diagnosis of cervical cancer. Continue to monitor for now. 12. History of diabetes. Continue Lantus and sliding scale insulin. 13. Seizures - switch to liquid dilantin, ativan prn Problems: Subjective 24 Hr Interval Summary Free Text/Dictation Pt was refusing some of her meds today until family came, then she took some earlier today. Seen by GI team. Exam/Review of Systems Vital Signs Vitals Vital Signs Date Time Temp Pulse Resp B/P Pulse Ox O2 Delivery O2 Flow Rate FiO2 10/28/16 11:10 98.6 98 16 112/66 96 Room Air 10/26/16 20:20 2.0 Intake and Output 10/27/16 10/27/16 10/28/16 15:00 23:00 07:00 Intake Total 304 ml 650 ml 1780 ml Balance 304 ml 650 ml 1780 ml Exam GENERAL: The patient is lying in bed, no acute distress. HEENT: Pupils equal, round, react to light. Extraocular muscles intact. NECK: Supple, no thyromegaly. LUNGS: Clear to auscultation bilaterally. CARDIOVASCULAR: S1, S2 heard. No rubs or gallops. ABDOMEN: Soft, nontender, nondistended. Normal bowel sounds. No rebound or guarding. MUSCULOSKELETAL: No lower extremity edema bilaterally. NEUROLOGIC: No focal deficits. Results Result Diagram: 10/27/16 0425 10/27/165 Results 24 hrs Laboratory Tests Test 10/27/16 12:44 10/27/16 17:21 10/27/16 20:37 10/28/16 01:14 Bedside Glucose 165 172 118 149 Test 10/28/16 05:10 10/28/16 11:10 Bedside Glucose 128 160 Medications Medications Current Medications Atorvastatin Calcium (Lipitor) 40 mg QHS PO Last administered on 10/27/16 21: 15; Admin Dose 40 MG; Start 10/26/16 at 21:00 Clonazepam (Klonopin) 1 mg BID PRN PO ANXIETY; Start 10/26/16 at 00:30 Metoprolol Tartrate (Lopressor) 50 mg BID PO ; Start 10/26/16 at 00:30 Nortriptyline HCl (Aventyl) 50 mg QHS PO Last administered on 10/27/16 21:18; Admin Dose 50 MG; Start 10/26/16 at 21:00 Oxcarbazepine (Trileptal) 300 mg BID PO Last administered on 10/27/16 21:16; Admin Dose 300 MG; Start 10/26/16 at 09:00 Phenytoin (Dilantin Susp (Ped)) 50 mg BID PO Last administered on 10/28/16 11: 26; Admin Dose 50 MG; Start 10/26/16 at 09:00 Sucralfate (Carafate Susp) 1 gm QID PO Last administered on 10/28/16 11:34; Admin Dose 1 GM; Start 10/26/16 at 09:00 Zolpidem Tartrate (Ambien) 10 mg QHS PRN PO INSOMNIA; Start 10/26/16 at 00:30 Miscellaneous Information 20 mg 20 mg QHS PO ; Start 10/26/16 at 21:00; Status UNV Dextrose/Sodium Chloride (D5-1/2ns) 1,000 ml @ 125 mls/hr Q8H IV Last administered on 10/28/16 12:06; Admin Dose 125 MLS/HR; Start 10/26/16 at 01:00 Pantoprazole (Protonix Iv) 40 mg DAILY@06 IV Last administered on 10/28/16 11: 34; Admin Dose 40 MG; Start 10/26/16 at 06:00 Morphine Sulfate (morphine) 3 mg Q4H PRN IV PAIN Last administered on 23:16; Admin Dose 3 MG; Start 10/26/16 at 01:00 Miscellaneous Information 1 ea NOTE XX ; Start 10/26/16 at 01:15 Glucose (Glutose) 15 gm Q15M PRN PO DECREASED GLUCOSE; Start 10/26/16 at 01:15 Glucose (Glutose) 22.5 gm Q15M PRN PO DECREASED GLUCOSE; Start 10/26/16 at 01: 15 Dextrose (D50w Syringe) 25 ml Q15M PRN IV DECREASED GLUCOSE; Start 10/26/16 at 01:15 Dextrose (D50w Syringe) 50 ml Q15M PRN IV DECREASED GLUCOSE; Start 10/26/16 at 01:15 Glucagon (Glucagen) 1 mg Q15M PRN IM DECREASED GLUCOSE; Start 10/26/16 at 01:15 Glucose (Glutose) 15 gm Q15M PRN BUCCAL DECREASED GLUCOSE; Start 10/26/16 at 01 :15 Miscellaneous Information MEDICATION REQUIRES CLARIFICATION: Q8H XX ; Start 10/26/16 at 09:00 Ondansetron HCl/ Sodium Chloride (Zofran Inj/NS) 54 ml @ 216 mls/hr Q6H PRN IV NAUSEA AND/OR VOMITING Last administered on 10/27/16 11:00; Admin Dose 216 MLS/HR; Start 10/26/16 at 15:41 Insulin Glargine (Lantus) 12 unit HS SC Last administered on 10/27/16 21:26; Admin Dose 12 UNIT; Start 10/26/16 at 21:00 Lorazepam (Ativan) 1 mg Q4H PRN IV NAUSEA Last administered on 10/28/16 11:25 ; Admin Dose 1 MG; Start 10/27/16 at 01:00 Insulin Aspart (Novolog Insulin Pen) NOVOLOG *MODERATE* ALGORI... Q4 SC Last administered on 10/28/16 11:29; Admin Dose 2 UNIT; Start 10/27/16 at 13:00 Metoclopramide HCl (Reglan) 10 mg Q6H IV Last administered on 10/28/16 11:34; Admin Dose 10 MG; Start 10/28/16 at 00:00 OLY HILLMAN October 28, 2016 12:45
[2016-10-28 13:56] LABS: ADD SCAN DIFF NO
[2016-10-28 14:01] LABS: BASOPHILS % 0.3 % (0.0-2.0); EOSINOPHILS # 0.1 10^3/ul (0.0-0.5); HEMATOCRIT 28.1 % (37.0-47.0); HEMOGLOBIN 9.7 g/dl (12.0-16.0); LYMPHOCYTES # 1.5 10^3/ul (0.8-2.9); LYMPHOCYTES % 26.1 % (15.0-51.0); MEAN CORPUSCULAR HEMOGLOBIN 31.4 pg (29.0-33.0); MEAN CORPUSCULAR HGB CONC 34.5 g/dl (32.0-37.0); MEAN CORPUSCULAR VOLUME 90.9 fl (82.0-101.0); MEAN PLATELET VOLUME 8.5 fl (7.4-10.4); MONOCYTE # 0.3 10^3/ul (0.3-0.9); MONOCYTES % 5.4 % (0.0-11.0); NEUTROPHIL # 3.8 10^3/ul (1.6-7.5); PLATELET COUNT 307 10^3/UL (140-415); RED BLOOD COUNT 3.09 10^6/ul (4.20-5.40); RED CELL DISTRIBUTION WIDTH 12.1 % (11.5-14.5); WHITE BLOOD COUNT 5.7 10^3/ul (4.8-10.8)
[2016-10-28 14:23] LABS: CALCIUM 8.4 mg/dl (8.4-10.2); CREATININE 0.68 mg/dl (0.44-1.00); POTASSIUM 3.7 mmol/L (3.5-5.1)
[2016-10-28] MEDS: morphine 4 MG/ML VIAL IV PRN ×2 (16:18→20:47)
[2016-10-28] MEDS ORDERED: INSULIN ASPART [NOVOLOG] 3 ML PEN SC SCH (17:35)
[2016-10-28] MEDS: Insulin NOVOLOG SS MODERATE Algorithm (SS with meals and bedtime) SC SCH ×3 (17:40→21:08)
[2016-10-28] MEDS: INSULIN GLARGINE [LANtus] 3 ML PEN SC SCH (20:45)
[2016-10-28] MEDS: NORTRIPTYLINE 25 MG CAP PO SCH (20:51)
[2016-10-28] MEDS: ATORVASTATIN 40 MG TAB PO SCH (20:53)
[2016-10-28] MEDS ORDERED: LATUDA 20 MG PO SCH (21:00)
[2016-10-28 21:12] VITALS: BP 102/59; RESP 16
[2016-10-29] MEDS: METOCLOPRAMIDE 10 MG INJ IV SCH ×3 (00:57→12:42)
[2016-10-29] MEDS ORDERED: ACCUCHECK AT 2AM (Patients on SS coverage) XX SCH (02:00)
[2016-10-29] MEDS: DEXTROSE 5%-0.45% NACL 1,000 ML IV SCH (04:52)
[2016-10-29] MEDS: PANTOPRAZOLE 40 MG INJ IV SCH (05:06)
[2016-10-29 05:09] LABS: ADD SCAN DIFF NO
[2016-10-29] MEDS: LORAZEPAM 2 MG INJ IV PRN ×3 (05:11→12:44)
[2016-10-29 05:17] LABS: BASOPHILS % 0.1 % (0.0-2.0); EOSINOPHILS # 0.1 10^3/ul (0.0-0.5); EOSINOPHILS % 2.1 % (0.0-7.0); HEMATOCRIT 28.1 % (37.0-47.0); HEMOGLOBIN 9.7 g/dl (12.0-16.0); LYMPHOCYTES # 2.2 10^3/ul (0.8-2.9); MEAN CORPUSCULAR HEMOGLOBIN 31.5 pg (29.0-33.0); MEAN CORPUSCULAR HGB CONC 34.5 g/dl (32.0-37.0); MEAN CORPUSCULAR VOLUME 91.2 fl (82.0-101.0); MEAN PLATELET VOLUME 8.7 fl (7.4-10.4); MONOCYTE # 0.4 10^3/ul (0.3-0.9); MONOCYTES % 6.6 % (0.0-11.0); NEUTROPHIL # 3.9 10^3/ul (1.6-7.5); NEUTROPHILS % 57.9 % (39.0-77.0); PLATELET COUNT 320 10^3/UL (140-415); RED BLOOD COUNT 3.08 10^6/ul (4.20-5.40); RED CELL DISTRIBUTION WIDTH 11.9 % (11.5-14.5); WHITE BLOOD COUNT 6.7 10^3/ul (4.8-10.8)
[2016-10-29 05:37] LABS: CALCIUM 8.4 mg/dl (8.4-10.2); CREATININE 0.73 mg/dl (0.44-1.00); POTASSIUM 3.7 mmol/L (3.5-5.1)
[2016-10-29] MEDS: morphine 4 MG/ML VIAL IV PRN ×2 (06:31→10:54)
[2016-10-29 08:06] VITALS: BP 110/67; RESP 16
[2016-10-29] MEDS: Insulin NOVOLOG SS MODERATE Algorithm (SS with meals and bedtime) SC SCH ×2 (09:00→12:00)
[2016-10-29] MEDS: SUCRALFATE (100 MG/ML) 10ML CUP PO SCH ×2 (09:00→12:42)
[2016-10-29] MEDS: METOPROLOL 50 MG TAB PO SCH (09:00)
[2016-10-29] MEDS: OXCARBAZEPINE 300 MG TAB PO SCH (09:01)
[2016-10-29] MEDS: PHENYTOIN (25 MG/ML PO SYG) PO SCH (09:01)
--- NOTE | 2016-10-29 13:53 | CONS ---
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 Chapman Consultation Date/Type/Reason Admit Date/Time October 28, 2016 at 15:45 Initial Consult Date 10/27/16 Type of Consultation: GI 24 HR Interval Summary Free Text/Dictation Patient denies abdominal pain Patient stable for discharge from GI standpoint Exam/Review of Systems Vital Signs Vitals Vital Signs Date Time Temp Pulse Resp B/P Pulse Ox O2 Delivery O2 Flow Rate FiO2 10/29/16 08:06 97.4 92 16 110/67 95 10/28/16 11:10 Room Air 10/26/16 20:20 2.0 Intake and Output 10/28/16 10/28/16 10/29/16 15:00 23:00 07:00 Intake Total 940 ml 1480 ml Balance 940 ml 1480 ml Exam Constitutional: alert, oriented, well developed Psych: nl mood/affect Head: normocephalic Eyes: EOMI, nl conjunctiva, nl lids ENMT: nl external ears & nose, nl lips & teeth, nl nasal mucosa & septum Respiratory: clear to auscultation, normal air movement Cardiovascular: regular rate and rhythm Gastrointestinal: soft, non tender Musculoskeletal: nl extremities to inspection Neurological: TIMBER SIZER II-XII intact Results Result Diagram: 10/29/16 0420 10/29/16 0420 Results 24 hrs Laboratory Tests Test 10/28/16 17:37 10/28/16 20:29 10/29/16 01:41 10/29/16 04:20 Bedside Glucose 135 201 152 White Blood Count 6.7 Red Blood Count 3.08 L Hemoglobin 9.7 L Hematocrit 28.1 L Mean Corpuscular Volume 91.2 Mean Corpuscular Hemoglobin 31.5 Mean Corpuscular Hemoglobin Concent 34.5 Red Cell Distribution Width 11.9 Platelet Count 320 Mean Platelet Volume 8.7 Neutrophils % 57.9 Lymphocytes % 33.0 Monocytes % 6.6 Eosinophils % 2.1 Basophils % 0.1 Nucleated Red Blood Cells % 0.0 Neutrophils # 3.9 Lymphocytes # 2.2 Monocytes # 0.4 Eosinophils # 0.1 Basophils # 0.0 Nucleated Red Blood Cells # 0.0 Sodium Level 136 Potassium Level 3.7 Chloride Level 103 Carbon Dioxide Level 29 Anion Gap 8 Blood Urea Nitrogen 8 Creatinine 0.73 Glucose Level 160 Calcium Level 8.4 Test 10/29/16 07:52 10/29/16 11:59 Bedside Glucose 192 140 Medications Medications Current Medications Atorvastatin Calcium (Lipitor) 40 mg QHS PO Last administered on 10/28/16 20: 53; Admin Dose 40 MG; Start 10/26/16 at 21:00 Clonazepam (Klonopin) 1 mg BID PRN PO ANXIETY; Start 10/26/16 at 00:30 Metoprolol Tartrate (Lopressor) 50 mg BID PO Last administered on 10/29/16 09: 00; Admin Dose 50 MG; Start 10/26/16 at 00:30 Nortriptyline HCl (Aventyl) 50 mg QHS PO Last administered on 10/28/16 20:51; Admin Dose 50 MG; Start 10/26/16 at 21:00 Oxcarbazepine (Trileptal) 300 mg BID PO Last administered on 10/29/16 09:01; Admin Dose 300 MG; Start 10/26/16 at 09:00 Phenytoin (Dilantin Susp (Ped)) 50 mg BID PO Last administered on 10/29/16 09: 01; Admin Dose 50 MG; Start 10/26/16 at 09:00 Sucralfate (Carafate Susp) 1 gm QID PO Last administered on 10/29/16 12:42; Admin Dose 1 GM; Start 10/26/16 at 09:00 Zolpidem Tartrate 10 mg 10 mg QHS PRN PO INSOMNIA; Start 10/26/16 at 00:30 Dextrose/Sodium Chloride (D5-1/2ns) 1,000 ml @ 75 mls/hr [id number] IV Last administered on 10/29/16 04:52; Admin Dose 75 MLS/HR; Start 10/26/16 at 01:00 Pantoprazole (Protonix Iv) 40 mg DAILY@06 IV Last administered on 10/29/16 05: 06; Admin Dose 40 MG; Start 10/26/16 at 06:00 Morphine Sulfate (morphine) 3 mg Q4H PRN IV PAIN Last administered on 10:54; Admin Dose 3 MG; Start 10/26/16 at 01:00 Miscellaneous Information 1 ea NOTE XX ; Start 10/26/16 at 01:15 Glucose (Glutose) 15 gm Q15M PRN PO DECREASED GLUCOSE; Start 10/26/16 at 01:15 Glucose (Glutose) 22.5 gm Q15M PRN PO DECREASED GLUCOSE; Start 10/26/16 at 01: 15 Dextrose (D50w Syringe) 25 ml Q15M PRN IV DECREASED GLUCOSE; Start 10/26/16 at 01:15 Dextrose (D50w Syringe) 50 ml Q15M PRN IV DECREASED GLUCOSE; Start 10/26/16 at 01:15 Glucagon (Glucagen) 1 mg Q15M PRN IM DECREASED GLUCOSE; Start 10/26/16 at 01:15 Glucose 15 gm 15 gm Q15M PRN BUCCAL DECREASED GLUCOSE; Start 10/26/16 at 01:15 Ondansetron HCl/ Sodium Chloride (Zofran Inj/NS) 54 ml @ 216 mls/hr Q6H PRN IV NAUSEA AND/OR VOMITING Last administered on 10/27/16 11:00; Admin Dose 216 MLS/HR; Start 10/26/16 at 15:41 Insulin Glargine (Lantus) 12 unit HS SC Last administered on 10/28/16 20:45; Admin Dose 12 UNIT; Start 10/26/16 at 21:00 Lorazepam (Ativan) 1 mg Q4H PRN IV NAUSEA Last administered on 10/29/16 12:44 ; Admin Dose 1 MG; Start 10/27/16 at 01:00 Metoclopramide HCl (Reglan) 10 mg Q6H IV Last administered on 10/29/16 12:42; Admin Dose 10 MG; Start 10/28/16 at 00:00 Patient Own Medication 1 ea QHS PO Last administered on 10/28/16 20:51; Admin Dose 1 EA; Start 10/28/16 at 21:00 Diagnostic Test (Pha) (Accu-Chek) 1 ea 02 XX ; Start 10/29/16 at 02:00 PANTERA BARTLETT October 29, 2016 13:53
--- NOTE | 2016-10-29 15:03 | PDOCDIS ---
Discharge Instructions CONDITION Patient Condition: Stable HOME CARE INSTRUCTIONS: Special Diet: 1800 ADA, soft ACTIVITY: Activity Restrictions: Slowly Increase Activity FOLLOW UP/APPOINTMENTS Appointments See doctor in 1 week. OLY HILLMAN October 29, 2016 15:03
[2016-10-29] MEDS ORDERED: METO5TAB58 PO (15:04)
--- NOTE | 2016-10-29 16:48 | DS ---
DATE OF ADMISSION: 10/28/2016 DATE OF DISCHARGE: 10/29/2016 HOSPITAL COURSE: A 36-year-old female originally admitted on 10/26/2016, being discharged home on 0 10/29/2016. Patient came in with vomiting symptoms. She has a prior history of severe ulcerative es ophagitis and schizophrenia. She was admitted to med/surg floor, seen by GI team. She was given an tiemetic medications as well. The patient was semi compliant with her medications, although when he r family came, she was more compliant. Through the rest of her hospital stay, her nausea and vomitin g symptoms improved. She was able to ambulate and tolerate a p.o. diet. After getting clearance fro m the supervisor home energy consultant team, she will be discharged home today in improved condition. There were some [facility] medicine changes made and also so she will go home with: MEDICATIONS: 1. Reglan 5 mg p.o. with meals. 2. Tylenol #3 p.r.n. 3. Aspirin 81 mg daily. 4. Atorvastatin 40 mg at bedtime. 5. Clonazepam 1 mg b.i.d. p.r.n. 6. Ferrous sulfate 325 mg b.i.d. 7. Lantus 15 units subcutaneous at bedtime. 8. Lispro 5 units sliding scale. 9. Latuda 20 mg at bedtime. 10. Lopressor 50 mg b.i.d. 11. Nortriptyline 50 mg at bedtime. 12. Oxcarbazepine 300 mg b.i.d. 13. Protonix 40 mg daily. 14. Dilantin 50 mg b.i.d. 15. Carafate 1 gram p.o. q.i.d. 16. Ambien 10 mg at bedtime p.r.n. She may follow up with primary care doctor in the clinic in the next 1 to 2 weeks. FINAL DIAGNOSES: 1. Vomiting most likely secondary to patient's history of severe erosive esophagitis, now improved. 2. Essential hypertension. 3. History of deep venous thrombosis. 4. History of prior stroke. 5. History of schizophrenia. 6. High cholesterol. 7. Bilateral nonhealing ulcers of the lower extremities, now stable. 8. Type 2 diabetes. 9. History of prior seizures. 10. Cervical cancer. Time spent with discharging patient 40 minutes. Dictated By: OLY DAWN Conf#: [id number] DID#: [id number]
== END 2016-10-29 16:48 | disposition home or self-care (01) | DRG 381 ==
LOC: E/R 18:04 → PP2 22:18 → OBSVTOIN 10-28 15:45
PROVIDERS: ADMIT Internal Medicine; ATTEND Internal Medicine
DX: K22.10 Ulcer of esophagus without bleeding (principal); E87.1 Hypo-osmolality and hyponatremia; I10 Essential (primary) hypertension; L97.919 Non-pressure chronic ulcer of unspecified part of right lower leg with unspecified severity; C53.9 Malignant neoplasm of cervix uteri, unspecified; D72.829 Elevated white blood cell count, unspecified; L97.929 Non-pressure chronic ulcer of unspecified part of left lower leg with unspecified severity; Z86.73 Personal history of transient ischemic attack (TIA), and cerebral infarction without residual deficits; Z86.718 Personal history of other venous thrombosis and embolism; E11.9 Type 2 diabetes mellitus without complications; I25.10 Atherosclerotic heart disease of native coronary artery without angina pectoris; E78.00 Pure hypercholesterolemia, unspecified; K29.70 Gastritis, unspecified, without bleeding; F20.9 Schizophrenia, unspecified
CPT/HCPCS: 36415; 80048; 80061; 81003; 82962; 83036; 83605; 84703; 85025; 92610; 96361; 96374; 96375; G0378; C9113; J1815; J2060; J2270; J2405; J2765; J3480; J7030; J7040; J7042; J7120